=== PATIENT | male | born 1965 | race Caucasian/White ===

== ENCOUNTER 2016-11-22 05:23 | Emergency (ER) | payer MEDICAID ==
[~2016-11-22] VITALS: Ht 167.6 cm; Wt 97.5 kg
[~2016-11-22 05:23] MED LIST: ALPR2TAB2 PO
[2016-11-22] MEDS ORDERED: ESCITALOPRAM OXALATE (10 MG) 10 MG TABLET ONE (06:17)
[2016-11-22] MEDS ORDERED: GABAPENTIN 100 MG CAPSULE ONE (06:17)
[2016-11-22] MEDS: GABAPENTIN 100 MG CAPSULE PO ONE (06:22)
[2016-11-22] MEDS: ESCITALOPRAM OXALATE (10 MG) 10 MG TABLET PO ONE (06:22)
[2016-11-22 06:50] LABS: BASOPHILS % (AUTO) 0.1 % (0.0-2.0); DIFF TOTAL % 100 %; EOSINOPHILS % (AUTO) 0.4 % (0.0-6.0); HEMATOCRIT 41 % (39-51); HEMOGLOBIN 13.3 g/dL (13.5-17.5); LYMPHOCYTES # (AUTO) 1.8 /CMM (0.8-4.8); LYMPHOCYTES % (AUTO) 17.9 % (20.0-44.0); MEAN CORPUSCULAR HEMOGLOBIN 27 PG (26.0-33.0); MEAN CORPUSCULAR HGB CONC 33 g/dl (31.0-36.0); MEAN CORPUSCULAR VOLUME 83 fL (80-96); MONOCYTES # (AUTO) 0.1 /CMM (0.1-1.30); MONOCYTES % (AUTO) 1.3 % (2.0-12.0); NEUTROPHILS # (AUTO) 8.3 /CMM (1.8-8.9); NEUTROPHILS % (AUTO) 80.3 % (43.0-81.0); PLATELET COUNT (AUTO) 376 /CMM (150-450); RED BLOOD CELL COUNT(AUTO) 4.89 MIL/uL (4.5-6.0); WHITE BLOOD COUNT (AUTO) 10.3 K/uL (4.3-11.0)
[2016-11-22 07:10] LABS: ANION GAP 18 (5-14); CALCIUM, SERUM 9.2 mg/dL (8.5-10.1); CARBON DIOXIDE 26 mmol/L (21-32); CHLORIDE 104 mmol/L (98-107); CREATININE 1.4 mg/dL (0.6-1.3); GFR 54 mL/min (>60); GLUCOSE 90 mg/dL (74-106); POTASSIUM 4.7 mmol/L (3.5-5.1); SODIUM SERUM 143 mmol/L (136-145); UREA NITROGEN, BLOOD 16 mg/dL (7-18)
[2016-11-22 07:10] LABS: CANNABINOID, URINE NEGATIVE (NEGATIVE); PHENCYCLIDINE SCREEN,URINE NEGATIVE (NEGATIVE)
[2016-11-22 07:15] LABS: ALANINE AMINOTRANSFERASE 34 U/L (12-78); ALBUMIN 4.1 g/dL (3.4-5.0); ASPARTATE AMINOTRANSFERASE 17 U/L (15-37); BILIRUBIN,DIRECT 0.1 mg/dL (0.0-0.2); BILIRUBIN,TOTAL 0.5 mg/dL (0.2-1.0); INDIRECT BILIRUBIN 0.4 mg/dL (0.0-1.1); TOTAL PROTEIN, SERUM 7.7 g/dL (6.4-8.2)
[2016-11-22 07:17] LABS: KETONES,URINE 1+ (NEGATIVE); LEUKOCYTE ESTERASE ,URINE NEGATIVE (NEGATIVE)
[2016-11-22 07:18] LABS: ACETAMINOPHEN 0 ug/ml (10-30); SALICYLATE 1.9 mg/dL (2.8-20.0)
[2016-11-22 07:36] LABS: ADD UA MICROSCOPIC YES
[2016-11-22 07:43] LABS: ADD URINE CULTURE YES; RBC,URINE NONE SEEN /HPF (0-2); WBC,URINE 0-2 /HPF (0-3)
[2016-11-22] MEDS ORDERED: diphenhydrAMINE HCL 50 MG CAPSULE ONE (09:21)
[2016-11-22] MEDS: diphenhydrAMINE HCL 50 MG CAPSULE PO ONE (09:27)
[2016-11-22 11:11] VITALS: BP 149/80
== END 2016-11-22 11:13 | disposition home or self-care (01) ==
LOC: ER 05:23
DX: F13.239 Sedative, hypnotic or anxiolytic dependence with withdrawal, unspecified (principal); F15.10 Other stimulant abuse, uncomplicated; I10 Essential (primary) hypertension
CPT/HCPCS: 36415; 80048; 80076; 80305; 81001; 85025; 87086; 99284; A4606; G0480; G0481; G0482; Q0163; Z7610; 81000-TC; G6038-TC; G6039-TC; G6040-TC

== ENCOUNTER 2017-02-07 17:41 | Emergency (ER) | payer MEDICAID ==
[~2017-02-07] VITALS: Ht 167.6 cm; Wt 95.3 kg
--- NOTE | 2017-02-07 17:43 | NUR ---
PT BIBRA TO ER BED 15. PER REPORT, CALLED 911 AND C/O DEPRESSION W/ SI. NO SPECIFIC PLAN. AT THE PD STATION. PT STARTED C/O CHEST PAIN. GOWNED AND PLACED ON MONITIOR. PLACED ON MSI PRECAUTION. AWAITING MD FLORES.
--- NOTE | 2017-02-07 17:58 | NUR ---
YUNG RN OTOLARYNGOLOGY AT BEDSIDE FOR EVAL.
[2017-02-07] MEDS ORDERED: ASPIRIN 81 MG TAB.CHEW PO ONE (18:00)
[2017-02-07] MEDS ORDERED: LORAZEPAM 1 MG TABLET PO ONE ×2 (18:00→21:00)
[2017-02-07] MEDS ORDERED: ASPIRIN 81 MG TAB.CHEW ONE (18:08)
[2017-02-07] MEDS ORDERED: LORAZEPAM 1 MG TABLET ONE ×2 (18:08→20:34)
--- NOTE | 2017-02-07 18:08 | NUR ---
IV LINE STARTED BLOOD DRAWN AND SENT TO LAB.
[2017-02-07 18:13] LABS: BASOPHILS # (AUTO) 0.1 /CMM (0.0-0.2); BASOPHILS % (AUTO) 1.3 % (0.0-2.0); EOSINOPHILS # (AUTO) 0.1 /CMM (0.0-0.7); HEMATOCRIT 47 % (39-51); HEMOGLOBIN 15.1 g/dL (13.5-17.5); LYMPHOCYTES # (AUTO) 1.7 /CMM (0.8-4.8); MEAN CORPUSCULAR HEMOGLOBIN 27 PG (26.0-33.0); MEAN CORPUSCULAR HGB CONC 33 g/dl (31.0-36.0); MEAN CORPUSCULAR VOLUME 85 fL (80-96); MONOCYTES # (AUTO) 0.6 /CMM (0.1-1.30); NEUTROPHILS % (AUTO) 70.7 % (43.0-81.0); PLATELET COUNT (AUTO) 362 /CMM (150-450); RDW COEFFICIENT OF VARIATION 15.3 (11.5-15.0); RED BLOOD CELL COUNT(AUTO) 5.52 MIL/uL (4.5-6.0); WHITE BLOOD COUNT (AUTO) 8.5 K/uL (4.3-11.0)
[2017-02-07 18:23] LABS: CARBON DIOXIDE 27 mmol/L (21-32); CHLORIDE 102 mmol/L (98-107); CREATININE 1.3 mg/dL (0.6-1.3); GFR 58 mL/min (>60); GLUCOSE 99 mg/dL (74-106); POTASSIUM 4.5 mmol/L (3.5-5.1); SODIUM SERUM 137 mmol/L (136-145); UREA NITROGEN, BLOOD 13 mg/dL (7-18)
[2017-02-07 18:29] LABS: INR 1.08 (0.87-1.13); PROTHROMBIN TIME 11.6 SECS (9.5-12.7)
[2017-02-07 18:31] LABS: TROPONIN I < 0.017 ng/mL (0.00-0.056)
--- NOTE | 2017-02-07 18:33 | NUR ---
CALLED [facility] FOR PSYCH EVAL, ETA 1 HOUR
[2017-02-07 19:15] LABS: ACETAMINOPHEN 0 ug/ml (10-30); ALCOHOL, BLOOD < 3 mg/dL (0-0); SALICYLATE 2.6 mg/dL (2.8-20.0)
[2017-02-07] MEDS ORDERED: diphenhydrAMINE HCL 50 MG/ML VIAL ONE (19:17)
[2017-02-07] MEDS ORDERED: diphenhydrAMINE HCL 50 MG/ML VIAL IV ONE (19:30)
[2017-02-07 19:57] LABS: CANNABINOID, URINE NEGATIVE (NEGATIVE); PHENCYCLIDINE SCREEN,URINE NEGATIVE (NEGATIVE)
--- NOTE | 2017-02-07 20:59 | NUR ---
CALLED [facility] FOR TRANSPORT TO [facility], ETA 90 MIN Addendum: 02/07/17 at 2059 by YAEL *ETA 2 AND A HALF HOURS
--- NOTE | 2017-02-07 21:26 | NUR ---
REPORT CALLED. SPOKE TO ARASH. PT AWAITING TRANSFER.
--- NOTE | 2017-02-07 22:43 | NUR ---
TRANSFERED TO [facility]. STABLE CONDITION. IVHL D/C'D.
[2017-02-07 22:46] VITALS: BP 152/87
== END 2017-02-07 22:47 | disposition home or self-care (01) ==
LOC: ER 17:45
DX: R07.89 Other chest pain (principal); F15.10 Other stimulant abuse, uncomplicated; F32.9 Major depressive disorder, single episode, unspecified; F41.9 Anxiety disorder, unspecified; I10 Essential (primary) hypertension; Z79.82 Long term (current) use of aspirin
CPT/HCPCS: 36415; 71010; 80048; 80305; 80329; 84484 ×2; 85025; 85730; 93005 ×2; 96374; 99285; G0480 ×2; J1200; G6039-TC

== ENCOUNTER 2017-05-10 05:45 | Emergency (ER) | payer MEDICAID ==
[~2017-05-10] VITALS: Ht 167.6 cm; Wt 95.3 kg
--- NOTE | 2017-05-10 06:30 | NUR ---
PT A/OX4 BREATHING EFFORTLESSLY ON ROOM AIR, PT STATES HE USED METH AND COCAINE 2 DAYS AGO AND NOW JUST FEELS LIKE HE IS A DANGER TO HIMSELF, PT DOES NOT HAVE A PLAN AND PT DENIES HI, URINE AND LABS COLLECTED, PT IN MD LORENA MADE AWARE WILL CONTINUE TO MONITOR.
[2017-05-10] MEDS ORDERED: LORAZEPAM 1 MG TABLET ONE ×2 (06:43→08:13)
[2017-05-10] MEDS ORDERED: LISINOPRIL (5MG) 5 MG TABLET ONE (06:47)
--- NOTE | 2017-05-10 06:56 | NUR ---
LISINIPRIL NOT AVAILABLE IN ER [facility], MEDICINE RECIVED FROM HOUSE SUP
[2017-05-10 06:58] LABS: CALCIUM, SERUM 9.4 mg/dL (8.5-10.1); CARBON DIOXIDE 25 mmol/L (21-32); CHLORIDE 102 mmol/L (98-107); CREATININE 1.2 mg/dL (0.6-1.3); GLUCOSE 99 mg/dL (74-106); POTASSIUM 4.2 mmol/L (3.5-5.1); SODIUM SERUM 138 mmol/L (136-145); UREA NITROGEN, BLOOD 10 mg/dL (7-18)
[2017-05-10 06:59] LABS: ALCOHOL, BLOOD < 3 mg/dL (0-0)
[2017-05-10] MEDS ORDERED: LORAZEPAM 1 MG TABLET PO ONE ×2 (07:00→08:30)
[2017-05-10 07:13] LABS: BASOPHILS % (AUTO) 0.4 % (0.0-2.0); EOSINOPHILS # (AUTO) 0.3 /CMM (0.0-0.7); EOSINOPHILS % (AUTO) 3.2 % (0.0-6.0); HEMATOCRIT 42 % (39-51); HEMOGLOBIN 14.2 g/dL (13.5-17.5); LYMPHOCYTES # (AUTO) 2.1 /CMM (0.8-4.8); LYMPHOCYTES % (AUTO) 22.1 % (20.0-44.0); MEAN CORPUSCULAR HEMOGLOBIN 28 PG (26.0-33.0); MEAN CORPUSCULAR HGB CONC 33 g/dl (31.0-36.0); MEAN CORPUSCULAR VOLUME 84 fL (80-96); MONOCYTES # (AUTO) 0.7 /CMM (0.1-1.30); MONOCYTES % (AUTO) 7.3 % (2.0-12.0); NEUTROPHILS # (AUTO) 6.3 /CMM (1.8-8.9); PLATELET COUNT (AUTO) 375 /CMM (150-450); RDW COEFFICIENT OF VARIATION 16.3 (11.5-15.0); RED BLOOD CELL COUNT(AUTO) 5.06 MIL/uL (4.5-6.0); WHITE BLOOD COUNT (AUTO) 9.3 K/uL (4.3-11.0)
--- NOTE | 2017-05-10 07:40 | NUR ---
PT AAO, NOTED CALM AND COOPERATIVE. SITTING IN BED. VSS. WILL MONITOR.
--- NOTE | 2017-05-10 08:50 | NUR ---
URMILA HOWELL LCSW AT BS FOR EVAL.
[2017-05-10] MEDS ORDERED: LISINOPRIL (20MG) 20 MG TABLET PO SCH (09:00)
--- NOTE | 2017-05-10 09:31 | NUR ---
CALL FROM KIAH, INTAKE AT [facility], ACCEPTED PT FOR ADMISSION
--- NOTE | 2017-05-10 09:38 | NUR ---
CALLED [facility] ETA 30-45MIN PER ANGELA
--- NOTE | 2017-05-10 10:00 | NUR ---
REPORT GIVEN TO [facility] FOR TRANSPORT TO [facility].
[2017-05-10 11:39] VITALS: BP 164/109
== END 2017-05-10 11:40 ==
LOC: ER 05:48
DX: F15.10 Other stimulant abuse, uncomplicated (principal); F31.9 Bipolar disorder, unspecified; F14.10 Cocaine abuse, uncomplicated; F41.9 Anxiety disorder, unspecified; I10 Essential (primary) hypertension; Z88.1 Allergy status to other antibiotic agents
CPT/HCPCS: 36415; 80048; 80305; 85025; 99285; A4606; G0480; Z7610

== ENCOUNTER 2017-05-24 05:47 | Emergency (ER) | payer MEDICAID ==
[~2017-05-24] VITALS: Ht 172.7 cm; Wt 90.7 kg
--- NOTE | 2017-05-24 06:03 | NUR ---
pt ambulatory w/ steady gait, c/o feeling very anxious, depressed, sob s/p smoking meth and alcohol use x last night, hx meth and alcohol abuse. pt AOx4, afebrile w/ resp even & unlabored, O2 sat 100% on RA, tachycardic, hypertensive, on continuous pulse-ox w/ monitoring. pt states he's been under a lot of stress, verbalizing he wants to kill himself, denies having any plan or any HI, cooperative at this time. Pending further brenden enriquez MD.
--- NOTE | 2017-05-24 06:17 | NUR ---
Dr. Batrlett at bedside for further eval.
[2017-05-24] MEDS ORDERED: LORAZEPAM INJ 2 MG/ML VIAL ONE (06:28)
[2017-05-24] MEDS ORDERED: IV NS 0.9% 1,000 ML BAG IV ONE (06:30)
[2017-05-24] MEDS ORDERED: LORAZEPAM INJ 2 MG/ML VIAL IM ONE (06:30)
--- NOTE | 2017-05-24 06:31 | NUR ---
CXR at bedside.
--- NOTE | 2017-05-24 06:35 | NUR ---
IVHL started, labs drawn & sent. medicated as ordered for pt report feeling anxious, tachycardic. On continuous monitoring. Urinal provided.
[2017-05-24 06:42] LABS: BASOPHILS % (AUTO) 0.2 % (0.0-2.0); EOSINOPHILS # (AUTO) 0.1 /CMM (0.0-0.7); EOSINOPHILS % (AUTO) 0.8 % (0.0-6.0); HEMATOCRIT 42 % (39-51); LYMPHOCYTES # (AUTO) 1.6 /CMM (0.8-4.8); LYMPHOCYTES % (AUTO) 11.7 % (20.0-44.0); MEAN CORPUSCULAR HEMOGLOBIN 28 PG (26.0-33.0); MEAN CORPUSCULAR HGB CONC 33 g/dl (31.0-36.0); MEAN CORPUSCULAR VOLUME 83 fL (80-96); MONOCYTES # (AUTO) 0.8 /CMM (0.1-1.30); MONOCYTES % (AUTO) 5.9 % (2.0-12.0); NEUTROPHILS # (AUTO) 11.2 /CMM (1.8-8.9); NEUTROPHILS % (AUTO) 81.4 % (43.0-81.0); PLATELET COUNT (AUTO) 383 /CMM (150-450); RDW COEFFICIENT OF VARIATION 15.7 (11.5-15.0); RED BLOOD CELL COUNT(AUTO) 5.03 MIL/uL (4.5-6.0); WHITE BLOOD COUNT (AUTO) 13.8 K/uL (4.3-11.0)
--- NOTE | 2017-05-24 06:51 | NUR ---
pt report unable to urinate at this time. Urinal provided. Instruct pt to provide urine sample as soon as able.
[2017-05-24 06:52] LABS: CALCIUM, SERUM 8.9 mg/dL (8.5-10.1); CARBON DIOXIDE 24 mmol/L (21-32); CHLORIDE 102 mmol/L (98-107); CREATININE 1.3 mg/dL (0.6-1.3); GLUCOSE 96 mg/dL (74-106); POTASSIUM 4.1 mmol/L (3.5-5.1); SODIUM SERUM 138 mmol/L (136-145); UREA NITROGEN, BLOOD 12 mg/dL (7-18)
[2017-05-24 07:00] LABS: TROPONIN I < 0.017 ng/mL (0.00-0.056)
--- NOTE | 2017-05-24 07:09 | NUR ---
Urine obtained & sent to lab.
--- NOTE | 2017-05-24 07:10 | NUR ---
Dr. Bartlett notified of pt elevated bp. pt continues to be anxious, hypertensive, on continuous monitoring w/ IV flds continue to be infusing. Report given to SIMONE Saini for ESTELLE.
[2017-05-24 07:12] LABS: ALANINE AMINOTRANSFERASE 33 U/L (12-78); ALBUMIN 4.6 g/dL (3.4-5.0); ALCOHOL, BLOOD < 3 mg/dL (0-0); ALKALINE PHOSPHATASE 92 U/L (46-116); ASPARTATE AMINOTRANSFERASE 22 U/L (15-37); BILIRUBIN,DIRECT 0.1 mg/dL (0.0-0.2); BILIRUBIN,TOTAL 0.5 mg/dL (0.2-1.0); TOTAL PROTEIN, SERUM 7.9 g/dL (6.4-8.2)
[2017-05-24] MEDS ORDERED: hydrALAZINE HCL IV 20 MG VIAL ONE (07:13)
[2017-05-24 07:19] LABS: ACETAMINOPHEN 0 ug/ml (10-30); SALICYLATE 1.4 mg/dL (2.8-20.0)
--- NOTE | 2017-05-24 07:20 | NUR ---
PT ON BED,AWAKE. STABLE
[2017-05-24 07:22] LABS: APPEARANCE,URINE CLEAR (CLEAR); BILIRUBIN,URINE NEGATIVE (NEGATIVE); BLOOD, URINE NEGATIVE Ery/uL (NEGATIVE); COLOR,URINE YELLOW (YELLOW); KETONES,URINE NEGATIVE (NEGATIVE); LEUKOCYTE ESTERASE ,URINE NEGATIVE (NEGATIVE); NITRITE, URINE NEGATIVE (NEGATIVE); PH,URINE 5.5 (5.0-8.0); PROTEIN,URINE NEGATIVE (NEGATIVE); UGLUCOSE NEGATIVE (NEGATIVE); UROBILINOGEN,URINE 0.2 EU/dL (0.2)
[2017-05-24] MEDS ORDERED: hydrALAZINE HCL IV 20 MG VIAL IM ONE (07:30)
--- NOTE | 2017-05-24 08:19 | NUR ---
CALLED LATOYA NICHOLS FOR PSYCHE EVAL. WILL BE HERE IN AN HOUR
[2017-05-24] MEDS ORDERED: ACETAMINOPHEN ES 500 MG TABLET ONE (08:52)
[2017-05-24] MEDS ORDERED: ACETAMINOPHEN ES 500 MG TABLET PO ONE (09:00)
--- NOTE | 2017-05-24 09:37 | NUR ---
SPOKE WITH PT AND NOTIFIED HIM OF PLAN OF CARE-- AWAITING FOR RN LATOYA
--- NOTE | 2017-05-24 09:42 | NUR ---
LAOTYA RN AT BEDSIDE
[2017-05-24] MEDS ORDERED: LABETALOL HCL IV 100MG VIAL IV ONE (11:00)
--- NOTE | 2017-05-24 12:17 | NUR ---
CALLED [facility] REQUESTED BY PT, SPOKE WITH FRANKLIN SCHROEDER THAT HE IS WORKING ON [place]
--- NOTE | 2017-05-24 13:32 | NUR ---
CALLED [facility] FOR TRANSPORT TO [facility], ETA 30 MIN
[2017-05-24] MEDS ORDERED: ALPRAZOLAM 0.5 MG TABLET ONE (13:46)
[2017-05-24] MEDS ORDERED: ALPRAZOLAM 0.5 MG TABLET PO ONE (14:00)
[2017-05-24 14:09] VITALS: BP 154/90
--- NOTE | 2017-05-24 14:10 | NUR ---
repoprt given to john brewer from [facility]
== END 2017-05-24 14:13 ==
LOC: ER 05:47
DX: F15.10 Other stimulant abuse, uncomplicated (principal); F10.20 Alcohol dependence, uncomplicated; G89.29 Other chronic pain; R07.9 Chest pain, unspecified; F32.9 Major depressive disorder, single episode, unspecified; I10 Essential (primary) hypertension; Z88.1 Allergy status to other antibiotic agents; F41.9 Anxiety disorder, unspecified
CPT/HCPCS: 36415; 71010; 80048; 80076; 80305; 80329; 81001; 84484; 85025; 93005; 96361; 96374 ×2; 96375; 99285; A4606; G0480 ×2; J0360; J2060; J7030 ×2; Z7610; 81000-TC

== ENCOUNTER 2017-08-28 03:26 | Emergency (ER) | payer MEDICAID ==
[~2017-08-28] VITALS: Ht 167.6 cm; Wt 95.3 kg
--- NOTE | 2017-08-28 03:40 | NUR ---
TO BED 12 A 52 YO MALE BB SELF REPORTING TO BE FEELING DEPRESSED AND NEEDS MEDICAL CLEARANCE FOR [facility] ADMISSION. PATIENT IS AAOX3, NAD NOTED. VSS. BREATHING EVEN AND UNLABORED. AMBULATORY WITH STEADY GAIT. DENIES SI/HI AT THIS TIME. SAFETY MEASURES IN PLACE.
[2017-08-28 04:04] LABS: BASOPHILS # (AUTO) 0.1 /CMM (0.0-0.2); BASOPHILS % (AUTO) 1.4 % (0.0-2.0); EOSINOPHILS # (AUTO) 0.3 /CMM (0.0-0.7); EOSINOPHILS % (AUTO) 2.8 % (0.0-6.0); HEMATOCRIT 40 % (39-51); HEMOGLOBIN 12.9 g/dL (13.5-17.5); LYMPHOCYTES # (AUTO) 2.1 /CMM (0.8-4.8); LYMPHOCYTES % (AUTO) 22.6 % (20.0-44.0); MEAN CORPUSCULAR HEMOGLOBIN 27 PG (26.0-33.0); MEAN CORPUSCULAR HGB CONC 33 g/dl (31.0-36.0); MEAN CORPUSCULAR VOLUME 82 fL (80-96); MONOCYTES # (AUTO) 0.7 /CMM (0.1-1.30); MONOCYTES % (AUTO) 8.2 % (2.0-12.0); NEUTROPHILS # (AUTO) 5.9 /CMM (1.8-8.9); PLATELET COUNT (AUTO) 391 /CMM (150-450); RDW COEFFICIENT OF VARIATION 16.2 (11.5-15.0); RED BLOOD CELL COUNT(AUTO) 4.84 MIL/uL (4.5-6.0); WHITE BLOOD COUNT (AUTO) 9.1 K/uL (4.3-11.0)
[2017-08-28 04:15] LABS: CALCIUM, SERUM 9.2 mg/dL (8.5-10.1); CARBON DIOXIDE 21 mmol/L (21-32); CHLORIDE 104 mmol/L (98-107); CREATININE 1.3 mg/dL (0.6-1.3); GLUCOSE 89 mg/dL (74-106); POTASSIUM 3.7 mmol/L (3.5-5.1); SODIUM SERUM 138 mmol/L (136-145); UREA NITROGEN, BLOOD 13 mg/dL (7-18)
[2017-08-28 04:20] LABS: ALANINE AMINOTRANSFERASE 43 U/L (12-78); ALBUMIN 3.9 g/dL (3.4-5.0); ALCOHOL, BLOOD < 3 mg/dL (0-0); ALKALINE PHOSPHATASE 92 U/L (46-116); ASPARTATE AMINOTRANSFERASE 63 U/L (15-37); BILIRUBIN,DIRECT 0.2 mg/dL (0.0-0.2); BILIRUBIN,TOTAL 0.7 mg/dL (0.2-1.0); TOTAL PROTEIN, SERUM 7.4 g/dL (6.4-8.2)
[2017-08-28 04:25] LABS: ACETAMINOPHEN 0 ug/ml (10-30)
--- NOTE | 2017-08-28 06:08 | NUR ---
Patient is still unable to provide urine at this time. Nad noted.
--- NOTE | 2017-08-28 06:23 | NUR ---
PT DISCHARGED, PT WAS GIVEN ACI AND LABS, PT UNABLE TO GIVE URINE SAMPLE AND MD TUCKER WAS OK DISCHARGING PATIENT WITHOUT OBTAINING URINE SAMPLE FIRST, PT WALKED OUT OF THE ER WITH A STEADY GAIT.
[2017-08-28 06:26] VITALS: BP 135/84
== END 2017-08-28 06:27 | disposition home or self-care (01) ==
LOC: ER 03:27
DX: F32.9 Major depressive disorder, single episode, unspecified (principal); F41.9 Anxiety disorder, unspecified; I10 Essential (primary) hypertension; F19.10 Other psychoactive substance abuse, uncomplicated; F10.10 Alcohol abuse, uncomplicated; Z90.89 Acquired absence of other organs
CPT/HCPCS: 36415; 80048; 80076; 80329; 85025; 99284; A4606; G0480 ×2; Z7610

== ENCOUNTER 2017-10-10 08:49 | Emergency (ER) | payer MEDICAID ==
[~2017-10-10] VITALS: Ht 167.6 cm; Wt 95.7 kg
--- NOTE | 2017-10-10 08:49 | NUR ---
BBRA FROM [facility] FOR CHEST PAIN SINCE 0500 AM THIS AM. ADMITS USING METH YESTERDAY. NAD NOTED. PT AAO X4, AMB WITH STEADY GAIT. RR EVEN AND UNLABORED. NITRO X2 AND 162 ASA GIVEN IN FIELD. PATIENT VERBALIZES RELIEF. MD AT BEDSIDE FOR EVAL.
[2017-10-10] MEDS ORDERED: KETOROLAC TROMETHAMINE INJ 30 MG/ML VIAL ONE (09:51)
[2017-10-10] MEDS ORDERED: KETOROLAC TROMETHAMINE INJ 30 MG/ML VIAL IV ONE (10:00)
[2017-10-10 10:01] LABS: BASOPHILS # (AUTO) 0.2 /CMM (0.0-0.2); EOSINOPHILS % (AUTO) 0.2 % (0.0-6.0); HEMATOCRIT 41 % (39-51); LYMPHOCYTES # (AUTO) 1.5 /CMM (0.8-4.8); LYMPHOCYTES % (AUTO) 16.4 % (20.0-44.0); MEAN CORPUSCULAR HEMOGLOBIN 26 PG (26.0-33.0); MEAN CORPUSCULAR HGB CONC 32 g/dl (31.0-36.0); MEAN CORPUSCULAR VOLUME 82 fL (80-96); MONOCYTES # (AUTO) 0.7 /CMM (0.1-1.30); MONOCYTES % (AUTO) 7.7 % (2.0-12.0); NEUTROPHILS # (AUTO) 6.8 /CMM (1.8-8.9); NEUTROPHILS % (AUTO) 73.7 % (43.0-81.0); PLATELET COUNT (AUTO) 391 /CMM (150-450); RDW COEFFICIENT OF VARIATION 17.4 (11.5-15.0); RED BLOOD CELL COUNT(AUTO) 4.94 MIL/uL (4.5-6.0); WHITE BLOOD COUNT (AUTO) 9.2 K/uL (4.3-11.0)
[2017-10-10 10:11] LABS: CALCIUM, SERUM 9.2 mg/dL (8.5-10.1); CARBON DIOXIDE 25 mmol/L (21-32); CHLORIDE 102 mmol/L (98-107); CREATININE 1.4 mg/dL (0.6-1.3); GLUCOSE 96 mg/dL (74-106); POTASSIUM 5.1 mmol/L (3.5-5.1); SODIUM SERUM 138 mmol/L (136-145); UREA NITROGEN, BLOOD 16 mg/dL (7-18)
[2017-10-10 10:14] LABS: INR 0.98 (0.87-1.13); PROTHROMBIN TIME 10.2 SECS (9.5-12.7)
[2017-10-10 10:21] LABS: TROPONIN I < 0.017 ng/mL (0.00-0.056)
[2017-10-10] MEDS ORDERED: OLANZAPINE 5 MG TABLET PO ONE (10:30)
[2017-10-10] MEDS ORDERED: OLANZAPINE 5 MG TABLET ONE (10:33)
[2017-10-10 10:56] VITALS: BP 125/68
--- NOTE | 2017-10-10 12:12 | NUR ---
Social service consult requested by DONNA Contreras for drug use and treatment placement. Pt. is a 52 year old male who came to [facility] for chest pain. CODI met with pt. in ED. Pt. is alert and oriented x 4. Pt. has a flat affect and is soft spoken. Pt. states he is homeless for over a year. Pt. has gone to a lot of hospitals. Pt. does not speak with his family. Pt. receives [employer] Relief and food stamps. Pt. is a drug user and uses crystal meth and cocaine. Pt. last used methamphetamines yesterday. Pt. is interested in treatment. Pt. has been to [facility] and [facility] in the past. Pt. denies suicidal/homicidal ideations and visual/ auditory hallucinations at this time. Pt. has had a history of psychiatric hospitalizations. CODI contacted [facility] and spoke with Yury regarding outpatient treatment. Yury informed CODI that since pt. is homeless they will not be able to service him since their program is intensive. CODI contacted [facility] and spoke to Nano Goncalves who informed SW to email her the intake referral packet. CODI sent referral to Nano at [email or web address]. CODI contacted Nano ext. [phone] who informed SW to send patient to [address] [place] [address] for an assessment into their detox program. CODI met with pt. and informed him regarding Nano wanting pt. to go to [facility] for an assessment. Pt. agreed. CODI consulted with nursing supervisor labor gang Libby for a taxi voucher to send pt. to [facility] treatment located at [address] [place] [address]. CODI arranged for taxi transportation to [facility]. CODI met with pt. and informed him that a taxi will transport him to [facility] and informed pt. to ask for Nano Goncalves once he gets there. Pt. was appreciative. CODI also gave pt. list of homeless shelters , winter shelters, food resources and list of medical and mental health clinics in [facility]. No other social service needs required at this time. CODI is available if needed.
== END 2017-10-10 10:57 | disposition home or self-care (01) ==
LOC: ER 08:52
DX: R07.89 Other chest pain (principal); I10 Essential (primary) hypertension; F32.9 Major depressive disorder, single episode, unspecified; F41.9 Anxiety disorder, unspecified; F15.10 Other stimulant abuse, uncomplicated; Z88.1 Allergy status to other antibiotic agents
CPT/HCPCS: 36415; 71010; 80048; 84484; 85025; 85730; 93005; 96374; 99285; A4606; J1885; Z7610

== ENCOUNTER 2020-07-04 19:30 | Emergency (ER) | payer MEDICAID, OTHER ==
[~2020-07-04] VITALS: Ht 167.6 cm; Wt 98.0 kg
[2020-07-04 19:30] VITALS: BP 101/57
[2020-07-04] MEDS ORDERED: ONDANSETRON 4 MG TAB.RAPDIS ONE (19:48)
--- NOTE | 2020-07-04 19:55 | NUR ---
PATIENT CAME TO ER BIB RA C/O BEING FOUND AT A BUS STOP "FEELING WEAK" ALSO ADMITS TO TAKING 2 XANAX PILLS AND 5 BEERS". PATIENT IS AAOX2. PATIENT IS SOMNOLENT. PATIENT IS BREATHING EVENLY AND UNLABORED ON ROOM AIR. CONNECTED TO THE MONITOR.
[2020-07-04] MEDS: ONDANSETRON 4 MG TAB.RAPDIS PO ONE (20:04)
--- NOTE | 2020-07-04 20:23 | NUR ---
PATIENT FAILED THE TRIAL OF AMBULATION. WILL TRY AGAIN AT ANOTHER TIME.
--- NOTE | 2020-07-04 20:33 | NUR ---
PATIENT IS GIVEN 2 APPLE JUICE, TOLERATED WELL WITH NO SIGNS OF CHOKING. PATIENT IS BREATHING EVENLY AND UNLABORED ON ROOM AIR. PATIENT STATES, "OOOH YEAH, THAT TASTES GOOD, YEAH, THAT TASTES GOOD" AFTER DRINKING 2 APPLE JUICE.
--- NOTE | 2020-07-04 23:51 | NUR ---
PATIENT IS SLEEPING. EASILY AROUSABLE THROUGH TOUCH AND VERBAL STIMULI. CONNECTED TO THE MONITOR. SIDE RAILS ARE UP FOR SAFETY. BREATHING EVENLY AND UNLABORED ON ROOM AIR. SITTER AT BEDSIDE.
--- NOTE | 2020-07-05 00:49 | NUR ---
IV removed. Catheter intact and site benign. Pressure and 4x4 applied to site. No bleeding noted.
--- NOTE | 2020-07-05 01:03 | NUR ---
Patient discharged to home in stable condition. Written and verbal after care instructions given. Patient verbalizes understanding of instruction.
--- NOTE | 2020-07-05 03:34 | NUR ---
dcPatient discharged to home in stable condition. Written and verbal after care instructions given. Patient verbalizes understanding of instruction.
--- NOTE | 2020-07-05 03:35 | NUR ---
patient is ambulatory with steady gi.t
== END 2020-07-05 03:34 | disposition home or self-care (01) ==
LOC: ER 19:38
DX: R53.1 Weakness (principal); I10 Essential (primary) hypertension; F32.9 Major depressive disorder, single episode, unspecified; F41.9 Anxiety disorder, unspecified; Z98.890 Other specified postprocedural states; Z88.1 Allergy status to other antibiotic agents; Z60.2 Problems related to living alone; Z79.899 Other long term (current) drug therapy
CPT/HCPCS: 99283; Q0162

== ENCOUNTER 2020-08-17 06:09 | Emergency (ER) | payer OTHER ==
[~2020-08-17] VITALS: Ht 167.6 cm; Wt 93.0 kg
--- NOTE | 2020-08-17 06:32 | NUR ---
PT WAS BROUGHT IN TO THE ER BY SELF FOR MEDICAL CLEARANCE TO GET ADMITTED TO THE [facility]. PT REPORTED HE IS NOT ABLE TO TAKE CARE OF HIMSELF. PT AMBULATORY TO BED 15. WAS GOWNED UP AND PLACED ON A MONITOR. VSS. ALL BELONGINGS WERE TAKEN AWAY AND WAS PLACED IN THE LOCKER. PT REMAINED UNDER CLOSE SUPERVISION OF A SITTER W/ SI PRECAUTION. WILL CONT TO MONITOR ,
--- NOTE | 2020-08-17 06:34 | NUR ---
URINE COLLECTED AND SENT TO LAB
--- NOTE | 2020-08-17 06:41 | NUR ---
BANK MANAGER AT BEDSIDE FOR BLOOD DRAW
[2020-08-17 06:53] LABS: APPEARANCE,URINE CLEAR (CLEAR); BILIRUBIN,URINE NEGATIVE (NEGATIVE); BLOOD, URINE NEGATIVE Ery/uL (NEGATIVE); COLOR,URINE YELLOW (YELLOW); KETONES,URINE NEGATIVE (NEGATIVE); LEUKOCYTE ESTERASE ,URINE NEGATIVE (NEGATIVE); NITRITE, URINE NEGATIVE (NEGATIVE); PROTEIN,URINE NEGATIVE (NEGATIVE); UGLUCOSE NEGATIVE (NEGATIVE); UROBILINOGEN,URINE 0.2 EU/dL (0.2)
[2020-08-17 07:02] LABS: BASOPHILS # (AUTO) 0.1 /CMM (0.0-0.2); BASOPHILS % (AUTO) 0.8 % (0.0-2.0); EOSINOPHILS % (AUTO) 2.9 % (0.0-6.0); HEMATOCRIT 50 % (39-51); HEMOGLOBIN 16.1 g/dL (13.5-17.5); LYMPHOCYTES # (AUTO) 1.3 /CMM (0.8-4.8); LYMPHOCYTES % (AUTO) 19.5 % (20.0-44.0); MEAN CORPUSCULAR HGB CONC 32 g/dl (31.0-36.0); MEAN CORPUSCULAR VOLUME 84 fL (80-96); MONOCYTES # (AUTO) 0.6 /CMM (0.1-1.30); MONOCYTES % (AUTO) 9.1 % (2.0-12.0); NEUTROPHILS # (AUTO) 4.7 /CMM (1.8-8.9); NEUTROPHILS % (AUTO) 67.7 % (43.0-81.0); PLATELET COUNT (AUTO) 414 /CMM (150-450); RED BLOOD CELL COUNT(AUTO) 5.88 MIL/uL (4.5-6.0); WHITE BLOOD COUNT (AUTO) 6.9 K/uL (4.3-11.0)
[2020-08-17 07:09] LABS: CALCIUM, SERUM 9.7 mg/dL (8.5-10.1); CARBON DIOXIDE 26 mmol/L (21-32); CHLORIDE 99 mmol/L (98-107); CREATININE 1.6 mg/dL (0.6-1.3); GLUCOSE 116 mg/dL (74-106); POTASSIUM 4.4 mmol/L (3.5-5.1); SODIUM SERUM 134 mmol/L (136-145); UREA NITROGEN, BLOOD 19 mg/dL (7-18)
[2020-08-17 07:20] LABS: ALANINE AMINOTRANSFERASE 49 U/L (12-78); ALBUMIN 4.1 g/dL (3.4-5.0); ALCOHOL, BLOOD < 3 mg/dL (0-0); ALKALINE PHOSPHATASE 94 U/L (46-116); ASPARTATE AMINOTRANSFERASE 27 U/L (15-37); BILIRUBIN,DIRECT 0.2 mg/dL (0.0-0.2); BILIRUBIN,TOTAL 0.5 mg/dL (0.2-1.0); TOTAL PROTEIN, SERUM 7.7 g/dL (6.4-8.2)
[2020-08-17 07:24] LABS: ACETAMINOPHEN 0 ug/ml (10-30)
[2020-08-17] MEDS ORDERED: LORAZEPAM 1 MG TABLET ONE (07:27)
[2020-08-17] MEDS ORDERED: LORAZEPAM 1 MG TABLET PO ONE (07:30)
--- NOTE | 2020-08-17 07:30 | NUR ---
received a call from the lab regarding covid 19 result "negative"
--- NOTE | 2020-08-17 08:42 | NUR ---
FOOD TRAY PROVIDED, PATIENT TOLERATED PO WELL.
--- NOTE | 2020-08-17 09:50 | NUR ---
This SW received a call from Zohra at [facility] Intake . Patient has been accepted, bed pending. Patient has been accepted under the care of Dr. Trinidad and Dr. Chaudhary Nurse to nurse report should be given once assigned to bed at ext [phone]. Per Zohra العلي to call [facility] ED to provide finalized accepting information. Plan: CODI to inform ED Staff of patient acceptance to [facility]. Pending final confirmation from Zohra [facility].
--- NOTE | 2020-08-17 09:53 | NUR ---
PER KIARA (INTAKE DEPT OF [facility])[phone], PATIENT ACCEPTED. AWAITING CALL BACK FOR TRANSFER INFO.
[2020-08-17] MEDS ORDERED: LISI-603 PO (10:02)
[2020-08-17] MEDS ORDERED: OMEP20CA15 PO (10:02)
--- NOTE | 2020-08-17 10:10 | NUR ---
FOOD TRAY PROVIDED, PATIENT TOLERATED PO WELL.
--- NOTE | 2020-08-17 12:37 | NUR ---
PT COMPLAINED OF HEARTBURN. MD MADE AWARE. RECEIVED VERBAL ORDER FOR MAALOX. NOTED AND CARRIED OUT
[2020-08-17] MEDS ORDERED: MAG HYDROX/AL HYDROX/SIMETH 30 ML UDC ONE (12:38)
[2020-08-17] MEDS ORDERED: MAG HYDROX/AL HYDROX/SIMETH 30 ML UDC PO ONE (13:00)
--- NOTE | 2020-08-17 13:22 | NUR ---
FOOD TRAY PROVIDED, PATIENT TOLERATED PO WELL.
--- NOTE | 2020-08-17 14:46 | NUR ---
PATIENT ASLEEP, EASILY AROUSABLE BY VOICE. HOOKED TO MONITOR, WILL CONTINUE TO MONITOR ACCORDINGLY. KEPT SAFE, WARM AND COMFORTABLE. SITTER AT BEDSIDE FOR SAFETY
--- NOTE | 2020-08-17 16:07 | NUR ---
karen called pt is accepted to [facility] by dr. villafana unit 2 call [phone] for report.
--- NOTE | 2020-08-17 16:27 | NUR ---
PATIENT AWAKE, IN BED. HOOKED TO MONITOR, WILL CONTINUE TO MONITOR ACCORDINGLY. KEPT SAFE, WARM AND COMFORTABLE. SITTER AT BEDSIDE FOR SAFETY
--- NOTE | 2020-08-17 16:38 | NUR ---
called [id number] [phone] X 2 arturo confirmation #[id number] will call us with ETA
--- NOTE | 2020-08-17 17:16 | NUR ---
FOOD TRAY PROVIDED, PATIENT TOLERATED PO WELL.
--- NOTE | 2020-08-17 18:47 | NUR ---
REPORT GIVEN TO JANNA NICHOLS OF UNIT 2
[2020-08-17 18:51] VITALS: BP 136/92
--- NOTE | 2020-08-17 18:59 | NUR ---
PATIENT PICKED UP BY [facility] UNIT [facility] IN STABLE CONDITION. CLINICALS PROVIDED TO EMS TO BE GIVEN TO [facility].
== END 2020-08-17 19:02 ==
LOC: ER 06:09
DX: R45.851 Suicidal ideations (principal); F15.10 Other stimulant abuse, uncomplicated; I10 Essential (primary) hypertension; F41.9 Anxiety disorder, unspecified; Z79.899 Other long term (current) drug therapy; Z20.828 Contact with and (suspected) exposure to other viral communicable diseases
CPT/HCPCS: 36415; 80048; 80076; 80299; 80307 ×2; 80320; 81001; 85025; 87426; 99285; C9803; 81000-TC; G0480

== ENCOUNTER 2020-10-01 12:26 | Emergency (ER) | payer OTHER ==
[~2020-10-01] VITALS: Ht 167.6 cm; Wt 93.0 kg
[~2020-10-01 12:26] MED LIST changes: +LISI-603 PO; +OMEP20CA15 PO
[2020-10-01 12:39] VITALS: BP 165/105
--- NOTE | 2020-10-01 13:12 | NUR ---
COVID SWAB OBTAINED AND SENT TO LAB
--- NOTE | 2020-10-01 13:16 | NUR ---
Patient discharged to home in stable condition. Written and verbal after care instructions given. Patient verbalizes understanding of instruction.
--- NOTE | 2020-10-03 14:43 | NUR ---
pt called to get covid result. verified information over the phone and released the result.
== END 2020-10-01 13:17 | disposition home or self-care (01) ==
LOC: ER 12:26
DX: L03.113 Cellulitis of right upper limb (principal); S40.812A Abrasion of left upper arm, initial encounter; S40.811A Abrasion of right upper arm, initial encounter; S60.511A Abrasion of right hand, initial encounter; W55.03XA Scratched by cat, initial encounter; Y92.89 Other specified places as the place of occurrence of the external cause; Y99.8 Other external cause status; Z20.828 Contact with and (suspected) exposure to other viral communicable diseases; F41.9 Anxiety disorder, unspecified; I10 Essential (primary) hypertension; Z79.899 Other long term (current) drug therapy
CPT/HCPCS: 99283; C9803; U0003

== ENCOUNTER 2020-10-01 16:38 | Emergency (ER) | payer OTHER ==
[~2020-10-01] VITALS: Ht 167.6 cm; Wt 93.0 kg
[2020-10-01 16:38] VITALS: BP 144/82
--- NOTE | 2020-10-01 18:10 | NUR ---
medically cleared. pt left w/out ACI.
== END 2020-10-01 18:12 | disposition home or self-care (01) ==
LOC: ER 16:41
DX: B34.8 Other viral infections of unspecified site (principal); I10 Essential (primary) hypertension; Z90.89 Acquired absence of other organs; Z88.1 Allergy status to other antibiotic agents; Z79.899 Other long term (current) drug therapy

== ENCOUNTER 2021-03-14 13:25 | Emergency (ER) | payer OTHER ==
[~2021-03-14] VITALS: Ht 167.6 cm; Wt 95.3 kg
[~2021-03-14 13:25] MED LIST changes: -LISI-603 PO; +LISI20TA30 PO
--- NOTE | 2021-03-14 13:35 | NUR ---
THE PATIENT BISB FOR C/O FEELING SUICIDAL X 2 DAYS. NO PLAN. REQUESTING VOLUNTARY PSYCH ADMIT. DENIES PAIN. RESPIRATION REGULAR AND UNLABORED. WILL CONTINUE TO MONITOR THE PATIENT.
[2021-03-14 13:54] LABS: BASOPHILS # (AUTO) 0.1 /CMM (0.0-0.2); BASOPHILS % (AUTO) 0.9 % (0.0-2.0); EOSINOPHILS % (AUTO) 1.1 % (0.0-6.0); HEMATOCRIT 46 % (39-51); HEMOGLOBIN 15.6 g/dL (13.5-17.5); LYMPHOCYTES # (AUTO) 1.2 /CMM (0.8-4.8); LYMPHOCYTES % (AUTO) 21.3 % (20.0-44.0); MEAN CORPUSCULAR HGB CONC 34 g/dl (31.0-36.0); MEAN CORPUSCULAR VOLUME 90 fL (80-96); MONOCYTES # (AUTO) 0.7 /CMM (0.1-1.30); MONOCYTES % (AUTO) 11.6 % (2.0-12.0); NEUTROPHILS # (AUTO) 3.8 /CMM (1.8-8.9); NEUTROPHILS % (AUTO) 65.1 % (43.0-81.0); PLATELET COUNT (AUTO) 336 /CMM (150-450); RED BLOOD CELL COUNT(AUTO) 5.12 MIL/uL (4.5-6.0); WHITE BLOOD COUNT (AUTO) 5.8 K/uL (4.3-11.0)
[2021-03-14 14:05] LABS: CALCIUM, SERUM 9.6 mg/dL (8.5-10.1); CARBON DIOXIDE 24 mmol/L (21-32); CHLORIDE 103 mmol/L (98-107); CREATININE 1.4 mg/dL (0.6-1.3); GLUCOSE 101 mg/dL (74-106); POTASSIUM 4.3 mmol/L (3.5-5.1); SODIUM SERUM 142 mmol/L (136-145); UREA NITROGEN, BLOOD 15 mg/dL (7-18)
[2021-03-14 14:11] LABS: ALANINE AMINOTRANSFERASE 46 U/L (12-78); ALBUMIN 4.2 g/dL (3.4-5.0); ALCOHOL, BLOOD < 3 mg/dL (0-0); ALKALINE PHOSPHATASE 108 U/L (46-116); ASPARTATE AMINOTRANSFERASE 27 U/L (15-37); BILIRUBIN,DIRECT 0.3 mg/dL (0.0-0.2); TOTAL PROTEIN, SERUM 7.9 g/dL (6.4-8.2)
[2021-03-14 14:14] LABS: ACETAMINOPHEN 0 ug/ml (10-30)
--- NOTE | 2021-03-14 14:22 | NUR ---
COVID SWAB DONE AND SENT TO THE LAB
--- NOTE | 2021-03-14 14:54 | NUR ---
covid negative per lab
[2021-03-14 15:03] LABS: BILIRUBIN,URINE SMALL (NEGATIVE); COLOR,URINE YELLOW (YELLOW); LEUKOCYTE ESTERASE ,URINE NEGATIVE (NEGATIVE); NITRITE, URINE NEGATIVE (NEGATIVE); PROTEIN,URINE TRACE mg/dl (NEGATIVE); UGLUCOSE NEGATIVE (NEGATIVE)
[2021-03-14 15:08] LABS: BACTERIA,URINE RARE /HPF (None Seen); RBC,URINE 0-2 /HPF (0-2); SQUAMOUS EPITHELIAL CELL,UR 0-2 /HPF (None Seen); WBC,URINE 0-2 /HPF (0-3)
[2021-03-14 15:09] LABS: MUCUS,URINE Few /LPF (None Seen)
--- NOTE | 2021-03-14 15:14 | NUR ---
pt hasd plan to cut his wrists given him a lunch tray
[2021-03-14] MEDS ORDERED: ALPRAZOLAM 0.5 MG TABLET PO ONE (17:30)
[2021-03-14] MEDS ORDERED: ALPRAZOLAM 0.5 MG TABLET ONE (17:32)
--- NOTE | 2021-03-14 18:24 | NUR ---
PT ACCEPTED IN [facility], [facility] [place] UNDER DR. YAN CALL [phone] FOR REPORT
--- NOTE | 2021-03-14 18:41 | NUR ---
REPORT GIVEN TO NURSE KIDD
--- NOTE | 2021-03-14 19:40 | NUR ---
CALL [facility] REF # [id number] WILL CALL WITH ETA
--- NOTE | 2021-03-14 23:31 | NUR ---
CALLED [facility] FOR UPDATED ETA. 45 MIN.
--- NOTE | 2021-03-15 00:58 | NUR ---
[facility] AT BEDSIDE FOR TRANSPORT. PT REFUSING TO BE TRANSFERED TO [facility]. DR AVLVERDE NOTIFIED. VERENA ANDERSON FOR EVAL.
--- NOTE | 2021-03-15 05:47 | NUR ---
PT ACCEPTED TO [facility] BY DR LANDAVERDE, UNIT 1. # FOR REPORT [phone]
--- NOTE | 2021-03-15 06:07 | NUR ---
[facility] CALL THE CAR CALLED FOR TRANSPORT. TRIP# [id number]
[2021-03-15 07:15] VITALS: BP 133/84
--- NOTE | 2021-03-15 07:47 | NUR ---
CALLED [id number] ETA IS 0800 WITH [facility]
--- NOTE | 2021-03-15 07:55 | NUR ---
REPORT GIVEN TO JACQUI BERKOWITZ [facility]. PT AWAITING TRANSPORT.
--- NOTE | 2021-03-15 07:57 | NUR ---
PT PROVIDED W/ BREAKFAST TRAY. STABLE VITALS.
--- NOTE | 2021-03-15 08:48 | NUR ---
CALLED [facility] NEW ETA 20 MINS
--- NOTE | 2021-03-15 09:54 | NUR ---
TRANSPORTED TO [facility] IN STABLE CONDITION.
== END 2021-03-15 09:55 ==
LOC: ER 13:25
DX: R45.851 Suicidal ideations (principal); F19.10 Other psychoactive substance abuse, uncomplicated; I10 Essential (primary) hypertension; F41.9 Anxiety disorder, unspecified; Z79.899 Other long term (current) drug therapy; Z20.822 Contact with and (suspected) exposure to COVID-19; Z88.1 Allergy status to other antibiotic agents
CPT/HCPCS: 36415; 80048; 80076; 80299; 80307; 80320; 81001; 85025; 87426; 99285; C9803; G0480

== ENCOUNTER 2021-03-29 16:36 | Emergency (ER) | payer OTHER ==
[~2021-03-29] VITALS: Ht 177.8 cm; Wt 113.4 kg
[2021-03-29] MEDS ORDERED: OLANZAPINE 5 MG TABLET PO ONE (17:00)
[2021-03-29] MEDS ORDERED: ALPRAZOLAM 0.5 MG TABLET PO ONE (17:00)
[2021-03-29] MEDS ORDERED: OLANZAPINE 5 MG TABLET ONE (17:03)
[2021-03-29] MEDS ORDERED: ALPRAZOLAM 0.5 MG TABLET ONE (17:03)
[2021-03-29 17:27] LABS: BASOPHILS # (AUTO) 0.1 /CMM (0.0-0.2); BASOPHILS % (AUTO) 0.6 % (0.0-2.0); EOSINOPHILS % (AUTO) 0.4 % (0.0-6.0); HEMATOCRIT 46 % (39-51); HEMOGLOBIN 15.3 g/dL (13.5-17.5); LYMPHOCYTES # (AUTO) 1.1 /CMM (0.8-4.8); LYMPHOCYTES % (AUTO) 6.6 % (20.0-44.0); MEAN CORPUSCULAR HGB CONC 33 g/dl (31.0-36.0); MEAN CORPUSCULAR VOLUME 90 fL (80-96); MONOCYTES # (AUTO) 0.9 /CMM (0.1-1.30); MONOCYTES % (AUTO) 5.1 % (2.0-12.0); NEUTROPHILS # (AUTO) 15.2 /CMM (1.8-8.9); NEUTROPHILS % (AUTO) 87.3 % (43.0-81.0); PLATELET COUNT (AUTO) 545 /CMM (150-450); RED BLOOD CELL COUNT(AUTO) 5.13 MIL/uL (4.5-6.0); WHITE BLOOD COUNT (AUTO) 17.4 K/uL (4.3-11.0)
[2021-03-29 17:40] LABS: CALCIUM, SERUM 10.4 mg/dL (8.5-10.1); CARBON DIOXIDE 22 mmol/L (21-32); CHLORIDE 102 mmol/L (98-107); CREATININE 2.3 mg/dL (0.6-1.3); GLUCOSE 85 mg/dL (74-106); POTASSIUM 5.7 mmol/L (3.5-5.1); SODIUM SERUM 140 mmol/L (136-145); UREA NITROGEN, BLOOD 30 mg/dL (7-18)
[2021-03-29 17:46] LABS: ALANINE AMINOTRANSFERASE 39 U/L (12-78); ALKALINE PHOSPHATASE 113 U/L (46-116); ASPARTATE AMINOTRANSFERASE 35 U/L (15-37); BILIRUBIN,DIRECT 0.3 mg/dL (0.0-0.2); BILIRUBIN,TOTAL 1.2 mg/dL (0.2-1.0); TOTAL PROTEIN, SERUM 8.6 g/dL (6.4-8.2)
[2021-03-29 17:48] LABS: BILIRUBIN,URINE SMALL (NEGATIVE); COLOR,URINE DARK YELLOW (YELLOW); LEUKOCYTE ESTERASE ,URINE Negative (NEGATIVE); NITRITE, URINE Negative (NEGATIVE); PH,URINE 5.5 (5.0-8.0); PROTEIN,URINE 30 mg/dl (NEGATIVE); UGLUCOSE Negative (NEGATIVE); UROBILINOGEN,URINE 0.2 EU/dL (0.2)
[2021-03-29 17:48] LABS: ACETAMINOPHEN < 0 ug/ml (10-30); ALCOHOL, BLOOD < 3 mg/dL (0-0)
[2021-03-29] MEDS ORDERED: IV NS 0.9% 1,000 ML IV ONE ×2 (18:00→19:00)
[2021-03-29 18:10] LABS: BACTERIA,URINE Few /HPF (None Seen); RBC,URINE 0-2 /HPF (0-2); SQUAMOUS EPITHELIAL CELL,UR Few /HPF (None Seen); WBC,URINE 0-2 /HPF (0-3)
[2021-03-29 18:11] LABS: HYALINE CASTS, URINE Moderate /LPF (None Seen)
[2021-03-29 18:15] LABS: MAGNESIUM 2.4 mg/dL (1.8-2.4); PHOSPHORUS 2.5 mg/dL (2.5-4.9)
--- NOTE | 2021-03-29 18:22 | NUR ---
ADELAIDA FROM THE STREET TO ER BED 12. AAOX4. NOT IN RESP DISTRESS. AMBULATORY. CAME IN FOR BIZAARE BEHAVIOR - PT TALKING TO SELF. ALSO PT IS C/O CHEST PAIN AND GEN BODY PAIN WHICH IS BURNING IN SENSATION STARTED TODAY. PT I NOTED TO HAVE SCRATCHES AND WITH REDNESS ON BILAT FOREARM. PROVIDER WAS AT THE BEDSIDE FOR EVAL. ORDERS RECEIVED, NOTED AND CARRIED OUT.
[2021-03-29 20:57] LABS: CALCIUM, SERUM 8.4 mg/dL (8.5-10.1); CREATININE 1.8 mg/dL (0.6-1.3); POTASSIUM 4.7 mmol/L (3.5-5.1)
[2021-03-29 21:02] LABS: ALBUMIN 3.9 g/dL (3.4-5.0); BILIRUBIN,TOTAL 0.7 mg/dL (0.2-1.0)
--- NOTE | 2021-03-29 21:28 | NUR ---
FACESHEET AND CLINICAL FAXED TO [facility] FOR VOLUNTARY PSYCH ADMISSION.
--- NOTE | 2021-03-29 22:14 | NUR ---
Jimy maurer in [facility] - 03/29/21 at 2305 by EPHRAIM PT PROVIDED WITH FISH
--- NOTE | 2021-03-29 22:14 | NUR ---
PT PROVIDED WITH FOOD
--- NOTE | 2021-03-29 22:53 | NUR ---
REC'D A CALL FROM BONNIE AT [facility] INTAKE: PT GOT ACCEPTED AT [facility] AT [facility] BY DR ESPINOZA. # FOR REPORT: [phone] "PLEASE ARRANGE TRANSPORTATION AFTER 0200"
--- NOTE | 2021-03-29 23:06 | NUR ---
SPOKE WITH MALCOM AT THE [facility] TO GIVE REPORT. NURSE WILL @ CALL WILL CALL BACK, NURSE IS CURRENTLY UNAVAILABLE AT THIS TIME
--- NOTE | 2021-03-29 23:13 | NUR ---
CALLED [facility] FOR TRANSPORTATION AFTER 0200. WILL CALL BACK. REF # [id number]
--- NOTE | 2021-03-29 23:37 | NUR ---
REPORT GIVEN TO SIMONE HALLMAN FOR ESTELLE AT [facility]. ACCORDING TO HER, SHE WILL HAVE TO TALK TO INTAKE IF PT CAN BE ADMITTED D/T PT DID NOT MEET CRITERIA. INTAKE WILL CALL BACK TO INFORM IS PT WILL BE ADMITTED OR NOT.
--- NOTE | 2021-03-30 00:16 | NUR ---
PT VERBALIZE FEELING BETTER REGARDING ANXIETY. PT DENIES SI/HI. PT WANTS TO LEAVE AND REFUSE TRANSFER TO [facility]. AMELIE SUTTON MADE AWARE.
--- NOTE | 2021-03-30 00:16 | NUR ---
PT REFUSE TO WAIT FOR ACI. PT LEFT WITHOUT ACI.
[2021-03-30 00:18] VITALS: BP 132/61
== END 2021-03-30 00:19 | disposition home or self-care (01) ==
LOC: ER 16:41
DX: N17.9 Acute kidney failure, unspecified (principal); F15.151 Other stimulant abuse with stimulant-induced psychotic disorder with hallucinations; E87.5 Hyperkalemia; I10 Essential (primary) hypertension; Z79.899 Other long term (current) drug therapy; R00.0 Tachycardia, unspecified; F19.10 Other psychoactive substance abuse, uncomplicated; F41.9 Anxiety disorder, unspecified; D72.829 Elevated white blood cell count, unspecified; E83.52 Hypercalcemia
CPT/HCPCS: 36415; 71045; 80048; 80053; 80076; 80143; 80307; 80320; 81001; 83735; 84100; 84484; 85025; 87426; 93005; 96360; 96361; 99285; C9803; J7030 ×2; G0480

== ENCOUNTER 2021-04-03 20:44 | Emergency (ER) | payer OTHER ==
[~2021-04-03] VITALS: Ht 167.6 cm; Wt 90.7 kg
[2021-04-03] MEDS ORDERED: IV NS 0.9% 1,000 ML BAG IV ONE (21:30)
--- NOTE | 2021-04-03 21:40 | NUR ---
urine obtained and sent to lab
--- NOTE | 2021-04-03 21:53 | NUR ---
BIBS TO ER BED 15. AAOX4. NOT IN RESP DISTRESS. AMBULATORY. CAME IN FOR C/O DEHYDRATION. PT ALSO COMING WITH C/O "I AM EMOTIONALLY TIRED" AND AUDITORY HALLUCINATION. PT DOES NOT WANT TO SAY WHAT THE VOICES ARE TELLING HIM. HE DENIES THAT PT IS TELLING HIM TO HURT HIMSELF NOR OTHERS. DENIES SUICIDAL NOR HOMICIDAL IDEATION. PT WANT TO BE ADMITTED VOLUNTARILY. PROVIDER WAS AT [facility] BESIDE ANGELO FLORES. ORDERS RECEIVED, NOTED AND CARRIED OUT. IV LINE ESTABLISHED ON L HAND 20G, BLOOD DRAWN AND SENT TO LAB. URINE COLLECTED AND SENT TO LAB
[2021-04-03 22:08] LABS: BILIRUBIN,URINE MODERATE (NEGATIVE); COLOR,URINE YELLOW (YELLOW); LEUKOCYTE ESTERASE ,URINE NEGATIVE (NEGATIVE); NITRITE, URINE NEGATIVE (NEGATIVE); PH,URINE 5.5 (5.0-8.0); PROTEIN,URINE TRACE mg/dl (NEGATIVE); UGLUCOSE NEGATIVE (NEGATIVE); UROBILINOGEN,URINE 0.2 EU/dL (0.2)
[2021-04-03 22:23] LABS: BASOPHILS # (AUTO) 0.1 /CMM (0.0-0.2); BASOPHILS % (AUTO) 0.9 % (0.0-2.0); EOSINOPHILS % (AUTO) 0.8 % (0.0-6.0); HEMATOCRIT 47 % (39-51); HEMOGLOBIN 15.7 g/dL (13.5-17.5); LYMPHOCYTES # (AUTO) 2.2 /CMM (0.8-4.8); LYMPHOCYTES % (AUTO) 22.5 % (20.0-44.0); MEAN CORPUSCULAR HGB CONC 34 g/dl (31.0-36.0); MEAN CORPUSCULAR VOLUME 91 fL (80-96); MONOCYTES # (AUTO) 0.9 /CMM (0.1-1.30); MONOCYTES % (AUTO) 9.2 % (2.0-12.0); NEUTROPHILS # (AUTO) 6.7 /CMM (1.8-8.9); NEUTROPHILS % (AUTO) 66.6 % (43.0-81.0); PLATELET COUNT (AUTO) 488 /CMM (150-450); RED BLOOD CELL COUNT(AUTO) 5.14 MIL/uL (4.5-6.0)
[2021-04-03 22:34] LABS: BACTERIA,URINE RARE /HPF (None Seen); MUCUS,URINE Many /LPF (None Seen); RBC,URINE 0-2 /HPF (0-2); SQUAMOUS EPITHELIAL CELL,UR 0-2 /HPF (None Seen); WBC,URINE 0-2 /HPF (0-3)
[2021-04-03 22:35] LABS: HYALINE CASTS, URINE Few /LPF (None Seen)
[2021-04-03 22:36] LABS: ALANINE AMINOTRANSFERASE 46 U/L (12-78); ALBUMIN 4.7 g/dL (3.4-5.0); ALCOHOL, BLOOD < 3 mg/dL (0-0); ALKALINE PHOSPHATASE 109 U/L (46-116); ASPARTATE AMINOTRANSFERASE 39 U/L (15-37); BILIRUBIN,DIRECT 0.2 mg/dL (0.0-0.2); BILIRUBIN,TOTAL 0.8 mg/dL (0.2-1.0); CALCIUM, SERUM 9.9 mg/dL (8.5-10.1); CARBON DIOXIDE 19 mmol/L (21-32); CHLORIDE 104 mmol/L (98-107); CREATININE 1.9 mg/dL (0.6-1.3); GLUCOSE 113 mg/dL (74-106); POTASSIUM 4.5 mmol/L (3.5-5.1); SODIUM SERUM 139 mmol/L (136-145); TOTAL PROTEIN, SERUM 8.7 g/dL (6.4-8.2); UREA NITROGEN, BLOOD 20 mg/dL (7-18)
[2021-04-03 22:42] LABS: ACETAMINOPHEN < 2 ug/ml (10-30)
--- NOTE | 2021-04-04 00:14 | NUR ---
CLINICAL AND FACESHEET FAXED TO [facility] INTAKE FOR VOLUNTARY PSYCH ADMISSION.
--- NOTE | 2021-04-04 01:51 | NUR ---
TRANSFER INFORMATION: PT ACCEPTED AT [facility] ACCEPTING MD BROWNE PHONE NUMBER FOR REPORT [phone]
--- NOTE | 2021-04-04 01:52 | NUR ---
INITIATED [id number] FOR TRANSPORT.
--- NOTE | 2021-04-04 01:57 | NUR ---
[id number] CALLED FOR TRANSPORT AND CURRENTLY ON HOLD AT THIS TIME.
--- NOTE | 2021-04-04 02:04 | NUR ---
[id number] TRIP #[id number]
--- NOTE | 2021-04-04 05:21 | NUR ---
[facility] ETA [phone]
[2021-04-04 05:36] VITALS: BP 127/63
--- NOTE | 2021-04-04 05:48 | NUR ---
gave repot to john ALVAREZ for cathy
--- NOTE | 2021-04-04 07:07 | NUR ---
PT FEEL BETTER AND NO LONGER WANTS TO GO TO [facility]. PT REMAINS TO DENY SI/HI. ER MADE AWARE. PT AAOX4. PT REFUSE TO WAIT FOR DISCHARGE INSTRUCTION. PT LEFT ER.
== END 2021-04-04 07:08 | disposition home or self-care (01) ==
LOC: ER 20:44
DX: F29 Unspecified psychosis not due to a substance or known physiological condition (principal); E86.0 Dehydration; N17.9 Acute kidney failure, unspecified; F15.10 Other stimulant abuse, uncomplicated; Z20.822 Contact with and (suspected) exposure to COVID-19; I10 Essential (primary) hypertension; F31.9 Bipolar disorder, unspecified; F41.9 Anxiety disorder, unspecified; D69.6 Thrombocytopenia, unspecified; F19.10 Other psychoactive substance abuse, uncomplicated
CPT/HCPCS: 36415; 80048; 80076; 80143; 80307; 80320; 81001; 85025; 87426; 96360; 99285; C9803; J7030; G0480

== ENCOUNTER 2021-04-11 10:14 | Emergency (ER) | payer OTHER ==
[~2021-04-11] VITALS: Ht 167.6 cm; Wt 89.4 kg
--- NOTE | 2021-04-11 10:14 | NUR ---
PT BIB SELF C/O DEPRESSION AND FOR VOLUNTARY PSYCH ADMISSION. PT IS AAOX4, NOT IN RESPIRATORY DISTRESS, V/S STABLE, KEPT RESTED AND COMFORTABLE. WILL CONTINUE TO MONITOR.
--- NOTE | 2021-04-11 11:05 | NUR ---
ER PHLEB AT BEDSIDE FOR BLOOD DRAW.
[2021-04-11 11:15] LABS: BASOPHILS % (AUTO) 0.5 % (0.0-2.0); EOSINOPHILS % (AUTO) 0.8 % (0.0-6.0); HEMATOCRIT 51 % (39-51); LYMPHOCYTES # (AUTO) 1.5 /CMM (0.8-4.8); LYMPHOCYTES % (AUTO) 19.3 % (20.0-44.0); MEAN CORPUSCULAR HGB CONC 33 g/dl (31.0-36.0); MEAN CORPUSCULAR VOLUME 91 fL (80-96); MONOCYTES # (AUTO) 0.8 /CMM (0.1-1.30); MONOCYTES % (AUTO) 9.8 % (2.0-12.0); NEUTROPHILS # (AUTO) 5.5 /CMM (1.8-8.9); NEUTROPHILS % (AUTO) 69.6 % (43.0-81.0); PLATELET COUNT (AUTO) 381 /CMM (150-450); RED BLOOD CELL COUNT(AUTO) 5.62 MIL/uL (4.5-6.0)
[2021-04-11 11:16] LABS: BILIRUBIN,URINE MODERATE (NEGATIVE); COLOR,URINE DARK YELLOW (YELLOW); LEUKOCYTE ESTERASE ,URINE Negative (NEGATIVE); NITRITE, URINE Negative (NEGATIVE); PH,URINE 5.5 (5.0-8.0); PROTEIN,URINE 30 mg/dl (NEGATIVE); UGLUCOSE Negative (NEGATIVE)
[2021-04-11 11:27] LABS: ALANINE AMINOTRANSFERASE 85 U/L (12-78); ALBUMIN 4.4 g/dL (3.4-5.0); ALKALINE PHOSPHATASE 123 U/L (46-116); ASPARTATE AMINOTRANSFERASE 46 U/L (15-37); BILIRUBIN,DIRECT 0.3 mg/dL (0.0-0.2); BILIRUBIN,TOTAL 1.2 mg/dL (0.2-1.0); CALCIUM, SERUM 9.8 mg/dL (8.5-10.1); CARBON DIOXIDE 23 mmol/L (21-32); CHLORIDE 99 mmol/L (98-107); CREATININE 1.6 mg/dL (0.6-1.3); GLUCOSE 105 mg/dL (74-106); SODIUM SERUM 135 mmol/L (136-145); TOTAL PROTEIN, SERUM 8.5 g/dL (6.4-8.2); UREA NITROGEN, BLOOD 20 mg/dL (7-18)
[2021-04-11 11:29] LABS: ACETAMINOPHEN < 3 ug/ml (10-30); ALCOHOL, BLOOD 0 mg/dL (0-0)
[2021-04-11 11:37] LABS: RBC,URINE NONE SEEN /HPF (0-2); WBC,URINE 0-2 /HPF (0-3)
[2021-04-11 11:38] LABS: BACTERIA,URINE None seen /HPF (None Seen)
[2021-04-11 11:39] LABS: SQUAMOUS EPITHELIAL CELL,UR Rare /HPF (None Seen)
--- NOTE | 2021-04-11 11:50 | NUR ---
COVID RESULT: NEGATIVE
--- NOTE | 2021-04-11 12:40 | NUR ---
PER PT HE WANTS TO BE DISCHARGE. AWARE.
[2021-04-11 12:46] VITALS: BP 129/72
--- NOTE | 2021-04-11 12:46 | NUR ---
Patient given written and verbal discharge instructions. Patient verbalizes understanding of instructions. Patient is ambulatory with steady gait. Refuses offer of senior care placement. Patient given list of available shelters in surrounding area.
== END 2021-04-11 12:46 | disposition home or self-care (01) ==
LOC: ER 10:26
DX: R45.851 Suicidal ideations (principal); F32.9 Major depressive disorder, single episode, unspecified; Z20.822 Contact with and (suspected) exposure to COVID-19; I10 Essential (primary) hypertension; F19.10 Other psychoactive substance abuse, uncomplicated
CPT/HCPCS: 36415; 80048; 80076; 80143; 80307; 80320; 81001; 85025; 87426; 99285; C9803; G0480

== ENCOUNTER 2021-05-12 19:00 | Emergency (ER) | payer OTHER ==
[~2021-05-12] VITALS: Ht 170.2 cm; Wt 86.2 kg
[2021-05-12 21:22] LABS: BASOPHILS # (AUTO) 0.1 K/uL (0.0-0.2); BASOPHILS % (AUTO) 1.1 % (0.0-2.0); EOSINOPHILS % (AUTO) 2.4 % (0.0-6.0); HEMATOCRIT 44 % (39-51); HEMOGLOBIN 14.8 g/dL (13.5-17.5); LYMPHOCYTES # (AUTO) 1.8 K/uL (0.8-4.8); LYMPHOCYTES % (AUTO) 30.7 % (20.0-44.0); MEAN CORPUSCULAR HGB CONC 33 g/dl (31.0-36.0); MEAN CORPUSCULAR VOLUME 91 fL (80-96); MONOCYTES # (AUTO) 0.5 K/uL (0.1-1.30); MONOCYTES % (AUTO) 8.3 % (2.0-12.0); NEUTROPHILS # (AUTO) 3.4 K/uL (1.8-8.9); NEUTROPHILS % (AUTO) 57.5 % (43.0-81.0); PLATELET COUNT (AUTO) 303 K/uL (150-450); RED BLOOD CELL COUNT(AUTO) 4.88 MIL/uL (4.5-6.0)
[2021-05-12 21:30] LABS: CALCIUM, SERUM 8.8 mg/dL (8.5-10.1); CARBON DIOXIDE 21 mmol/L (21-32); CHLORIDE 106 mmol/L (98-107); CREATININE 1.2 mg/dL (0.6-1.3); GLUCOSE 90 mg/dL (74-106); SODIUM SERUM 138 mmol/L (136-145); UREA NITROGEN, BLOOD 13 mg/dL (7-18)
[2021-05-12 21:35] LABS: ACETAMINOPHEN < 10 ug/ml (10-30); ALANINE AMINOTRANSFERASE 63 U/L (12-78); ALCOHOL, BLOOD 7 mg/dL (0-0); ALKALINE PHOSPHATASE 99 U/L (46-116); ASPARTATE AMINOTRANSFERASE 45 U/L (15-37); BILIRUBIN,DIRECT 0.1 mg/dL (0.0-0.2); BILIRUBIN,TOTAL 0.2 mg/dL (0.2-1.0); TOTAL PROTEIN, SERUM 7.3 g/dL (6.4-8.2)
[2021-05-12 22:10] LABS: BILIRUBIN,URINE NEGATIVE (NEGATIVE); COLOR,URINE YELLOW (YELLOW); LEUKOCYTE ESTERASE ,URINE NEGATIVE (NEGATIVE); NITRITE, URINE NEGATIVE (NEGATIVE); PROTEIN,URINE NEGATIVE (NEGATIVE); UGLUCOSE NEGATIVE (NEGATIVE); UROBILINOGEN,URINE 0.2 EU/dL (0.2)
--- NOTE | 2021-05-13 01:00 | NUR ---
pt , a, ox4, ambulatory w/ steady gaits. denied SI/HI and reported willing to leave. stable and clear for d/c per MD. Patient discharged to home in stable condition. Written and verbal after care instructions given. Patient verbalizes understanding of instruction.
[2021-05-13 02:00] VITALS: BP 139/88
== END 2021-05-13 02:01 | disposition home or self-care (01) ==
LOC: ER 19:03
DX: F34.1 Dysthymic disorder (principal); R00.0 Tachycardia, unspecified; Z59.0 Homelessness; I10 Essential (primary) hypertension; Z20.822 Contact with and (suspected) exposure to COVID-19; F41.9 Anxiety disorder, unspecified; F19.10 Other psychoactive substance abuse, uncomplicated; Z88.1 Allergy status to other antibiotic agents
CPT/HCPCS: 36415; 80048; 80076; 80143; 80307; 80320; 81003; 85025; 87426; 99283; C9803; G0480

== ENCOUNTER 2021-06-02 11:40 | Emergency (ER) | payer OTHER ==
[~2021-06-02] VITALS: Ht 172.7 cm; Wt 93.0 kg
--- NOTE | 2021-06-02 12:02 | NUR ---
BIBRA60 [facility], FOUND PASSED OUT. C/O WEAKNESS. BG 89. REQUESTING TO TALK TO PSYCH. DENIES SI/HI. THE PATIENT IS ALERT AND ORIENTED X3. IN ROOM AND DENIES SOB. RESPIRATION REGULAR AN UNLABORED. DENIES PAIN. ATTACHED TO THE MONITOR. WARM BLANKET PROVIDED FOR COMFORT. WILL CONTINUE TO MONITOR THE PATIENT.
--- NOTE | 2021-06-02 15:00 | NUR ---
THE PATIENT IS SLEEPING. RESPONSIVE TO VERBAL STIMULI. WILL CONTINUE TO MONITOR THE PATIENT.
--- NOTE | 2021-06-02 16:08 | NUR ---
SS consult requested for ETOH abuse & possible homelessness. SW met with pt. bedside. The pt. is still very intoxicated and not rousable toverbal cues. SW placed homeless & addiction resources and waiver in chart for follow up upon D/C.
--- NOTE | 2021-06-02 18:43 | NUR ---
Patient given written and verbal discharge instructions. Patient verbalizes understanding of instructions. Patient is ambulatory with steady gait. Refuses offer of group home placement. Patient given list of available shelters in surrounding area. Patient refused to sign homeless waiver. Patient a/ox4, ambulatory with steady gait. Needs attended. Food provided.
[2021-06-02 19:02] VITALS: BP 136/69
== END 2021-06-02 19:03 | disposition home or self-care (01) ==
LOC: ER 11:46
DX: F10.129 Alcohol abuse with intoxication, unspecified (principal); I10 Essential (primary) hypertension; F32.9 Major depressive disorder, single episode, unspecified; F41.9 Anxiety disorder, unspecified; Z90.89 Acquired absence of other organs; Z88.1 Allergy status to other antibiotic agents; Z79.899 Other long term (current) drug therapy; Y90.9 Presence of alcohol in blood, level not specified

== ENCOUNTER 2021-06-04 07:06 | Emergency (ER) | payer OTHER ==
[~2021-06-04] VITALS: Ht 172.7 cm; Wt 93.0 kg
[2021-06-04 08:00] VITALS: BP 148/76
--- NOTE | 2021-06-04 08:02 | NUR ---
THE PATIENT BIBS FOR C/O BLE PAIN X1 DAY. RATES PAIN 6/10. WILL CONTINUE TO MONITOR THE PATIENT
[2021-06-04] MEDS ORDERED: IBUP-1953 PO (08:40)
== END 2021-06-04 10:46 | disposition home or self-care (01) ==
LOC: ER 07:07
DX: R25.2 Cramp and spasm (principal); I10 Essential (primary) hypertension; F32.9 Major depressive disorder, single episode, unspecified; F41.9 Anxiety disorder, unspecified; F10.10 Alcohol abuse, uncomplicated; Y90.9 Presence of alcohol in blood, level not specified; Z90.89 Acquired absence of other organs; Z88.1 Allergy status to other antibiotic agents; Z79.899 Other long term (current) drug therapy

== ENCOUNTER 2021-12-05 10:09 | Emergency (ER) | payer OTHER ==
[~2021-12-05] VITALS: Ht 167.6 cm; Wt 90.7 kg
[~2021-12-05 10:09] MED LIST changes: +IBUP-1953 PO
[2021-12-05 10:19] VITALS: BP 143/82
--- NOTE | 2021-12-05 10:19 | NUR ---
BIBS C/O ANXIETY, PT IS HOMELESS AND STATED HE USUALLY TAKES MEDICATION (CLONAPINE) BUT RAN OUT. HAS APPOINTMENT WITH MD TOMORROW.
[2021-12-05] MEDS ORDERED: clonazePAM 1 MG TABLET ONE (10:39)
[2021-12-05] MEDS ORDERED: CLON1TAB PO (10:47)
[2021-12-05] MEDS ORDERED: clonazePAM 1 MG TABLET PO ONE (11:00)
--- NOTE | 2021-12-05 11:06 | NUR ---
Patient discharged to home in stable condition. Written and verbal after care instructions given. Patient verbalizes understanding of instruction.
== END 2021-12-05 11:06 | disposition home or self-care (01) ==
LOC: ER 10:11
DX: F13.20 Sedative, hypnotic or anxiolytic dependence, uncomplicated (principal); F41.9 Anxiety disorder, unspecified; F32.9 Major depressive disorder, single episode, unspecified; Z76.0 Encounter for issue of repeat prescription; I10 Essential (primary) hypertension; Z59.00 Homelessness unspecified; Z90.89 Acquired absence of other organs; Z88.1 Allergy status to other antibiotic agents; Z79.899 Other long term (current) drug therapy

== ENCOUNTER 2022-01-31 16:21 | Emergency (ER) | payer OTHER ==
[~2022-01-31] VITALS: Ht 167.6 cm; Wt 88.5 kg
[~2022-01-31 16:21] MED LIST changes: +CLON1TAB PO
[2022-01-31 16:49] VITALS: BP 158/84
[2022-01-31] MEDS ORDERED: QUET100T PO (17:17)
[2022-01-31] MEDS ORDERED: LORAZEPAM 1 MG TABLET ONE (17:17)
[2022-01-31] MEDS ORDERED: LORAZEPAM 1 MG TABLET PO ONE (17:30)
--- NOTE | 2022-01-31 17:31 | NUR ---
Patient discharged to home in stable condition. Written and verbal after care instructions given. Patient verbalizes understanding of instruction.
== END 2022-01-31 17:32 | disposition home or self-care (01) ==
LOC: ER 16:25
DX: F41.0 Panic disorder [episodic paroxysmal anxiety] (principal); Z76.0 Encounter for issue of repeat prescription; I10 Essential (primary) hypertension; F32.A Depression, unspecified; F41.9 Anxiety disorder, unspecified; Z90.89 Acquired absence of other organs; Z88.1 Allergy status to other antibiotic agents; Z59.00 Homelessness unspecified; Z79.1 Long term (current) use of non-steroidal anti-inflammatories (NSAID); Z79.899 Other long term (current) drug therapy

== ENCOUNTER 2022-02-14 10:49 | Emergency (ER) | payer OTHER ==
[~2022-02-14] VITALS: Ht 167.6 cm; Wt 86.2 kg
[~2022-02-14 10:49] MED LIST changes: +QUET100T PO
--- NOTE | 2022-02-14 10:49 | NUR ---
PT BIB SELF C/O DEPRESSION REQUESTING PSYCH ADMISSION TO [facility]. PT IS AAOX4, NOT IN RESPIRATORY DISTRESS, V/S STABLE, KEPT RESTED AND COMFORTABLE. WILL CONTINUE TO MONITOR.
--- NOTE | 2022-02-14 10:56 | NUR ---
URINE SPECIMEN COLLECTED AND SENT TO LAB.
--- NOTE | 2022-02-14 11:00 | NUR ---
ER PHLEB AT BEDSIDE FOR BLOOD DRAW.
[2022-02-14 11:13] LABS: BASOPHILS # (AUTO) 0.1 K/uL (0.0-0.2); BASOPHILS % (AUTO) 0.8 % (0.0-2.0); EOSINOPHILS % (AUTO) 3.3 % (0.0-6.0); HEMATOCRIT 45 % (39-51); HEMOGLOBIN 14.8 g/dL (13.5-17.5); LYMPHOCYTES # (AUTO) 1.2 K/uL (0.8-4.8); LYMPHOCYTES % (AUTO) 16.7 % (20.0-44.0); MEAN CORPUSCULAR HGB CONC 33 g/dl (31.0-36.0); MEAN CORPUSCULAR VOLUME 87 fL (80-96); MONOCYTES # (AUTO) 0.6 K/uL (0.1-1.30); MONOCYTES % (AUTO) 8.3 % (2.0-12.0); NEUTROPHILS # (AUTO) 5.2 K/uL (1.8-8.9); NEUTROPHILS % (AUTO) 70.9 % (43.0-81.0); PLATELET COUNT (AUTO) 331 K/uL (150-450); RED BLOOD CELL COUNT(AUTO) 5.24 MIL/uL (4.5-6.0); WHITE BLOOD COUNT (AUTO) 7.3 K/uL (4.3-11.0)
[2022-02-14 11:16] LABS: BILIRUBIN,URINE NEGATIVE (NEGATIVE); COLOR,URINE YELLOW (YELLOW); LEUKOCYTE ESTERASE ,URINE NEGATIVE (NEGATIVE); NITRITE, URINE NEGATIVE (NEGATIVE); PROTEIN,URINE NEGATIVE (NEGATIVE); UGLUCOSE NEGATIVE (NEGATIVE)
[2022-02-14 11:28] LABS: ALBUMIN 3.5 g/dL (3.4-5.0); BILIRUBIN,DIRECT 0.1 mg/dL (0.0-0.2); BILIRUBIN,TOTAL 0.5 mg/dL (0.2-1.0); CALCIUM, SERUM 8.8 mg/dL (8.5-10.1); CREATININE 1.3 mg/dL (0.6-1.3); TOTAL PROTEIN, SERUM 6.7 g/dL (6.4-8.2)
[2022-02-14 11:34] LABS: BACTERIA,URINE None seen /HPF (None Seen); RBC,URINE 0-2 /HPF (0-2); SQUAMOUS EPITHELIAL CELL,UR Rare /HPF (None Seen); WBC,URINE 0-2 /HPF (0-3)
--- NOTE | 2022-02-14 12:10 | NUR ---
COVID SPECIMEN OBTAINED AND SENT TO LAB.
--- NOTE | 2022-02-14 13:11 | NUR ---
PAGED CLINICALS TO [facility]
[2022-02-14] MEDS ORDERED: LORAZEPAM 1 MG TABLET PO ONE (14:30)
[2022-02-14] MEDS ORDERED: LORAZEPAM 1 MG TABLET ONE (14:30)
--- NOTE | 2022-02-14 14:38 | NUR ---
PROVIDED W SANDWICH AND WATER. TOLERATED WELL
--- NOTE | 2022-02-14 15:16 | NUR ---
[facility], ref[facility]ed clinicals to [facility] [[phone]], awaiting for feedback.
--- NOTE | 2022-02-14 20:57 | NUR ---
PT ACCESS AT [facility] UNDER DR YAN CALL FOR REPORT [phone] ROOM NUMBER ON REPORT
--- NOTE | 2022-02-14 20:59 | NUR ---
[facility] ETA 45 MINUTES.
--- NOTE | 2022-02-14 21:33 | NUR ---
REPORT GIVEN TO EMS AT BEDSIDE
[2022-02-14 22:39] VITALS: BP 146/66
== END 2022-02-14 21:45 | disposition home or self-care (01) ==
LOC: ER 10:59
DX: F15.10 Other stimulant abuse, uncomplicated (principal); R45.851 Suicidal ideations; F32.A Depression, unspecified; Z59.00 Homelessness unspecified; I10 Essential (primary) hypertension; Z79.899 Other long term (current) drug therapy; F19.10 Other psychoactive substance abuse, uncomplicated; Z20.822 Contact with and (suspected) exposure to COVID-19
CPT/HCPCS: 36415; 80048; 80076; 80143; 80307; 80320; 81001; 85025; 87426; 99283; C9803; G0480

== ENCOUNTER 2022-03-07 07:16 | Emergency (ER) | payer OTHER ==
[~2022-03-07] VITALS: Ht 320 cm; Wt 86.2 kg
--- NOTE | 2022-03-07 07:16 | NUR ---
PT BIB SELF C/O MED REFILL OF XANAX AND DEPRESSION REQUESTING [facility] PT IS AAOX4, NOT IN RESPIRATORY DISTRESS, V/S STABLE, KEPT RESTED AND COMFORTABLE. WILL CONTINUE TO MONITOR.
--- NOTE | 2022-03-07 07:20 | NUR ---
URINAL GIVEN BUT UNABLE TO PROVIDE URINE SPECIMEN THIS TIME.
--- NOTE | 2022-03-07 07:26 | NUR ---
SECURITY AT BEDSIDE AND EMT FOR WANDING AND PLACED PT ON GOWN.
[2022-03-07] MEDS ORDERED: LORAZEPAM 1 MG TABLET PO ONE (07:30)
[2022-03-07] MEDS ORDERED: LORAZEPAM 1 MG TABLET ONE (07:37)
--- NOTE | 2022-03-07 07:37 | NUR ---
COVID SWAB SENT TO LAB
[2022-03-07 07:57] LABS: BASOPHILS % (AUTO) 0.7 % (0.0-2.0); EOSINOPHILS % (AUTO) 3.8 % (0.0-6.0); HEMATOCRIT 50 % (39-51); LYMPHOCYTES # (AUTO) 1.3 K/uL (0.8-4.8); LYMPHOCYTES % (AUTO) 19.4 % (20.0-44.0); MEAN CORPUSCULAR HGB CONC 32 g/dl (31.0-36.0); MEAN CORPUSCULAR VOLUME 87 fL (80-96); MONOCYTES # (AUTO) 0.6 K/uL (0.1-1.30); MONOCYTES % (AUTO) 8.4 % (2.0-12.0); NEUTROPHILS # (AUTO) 4.5 K/uL (1.8-8.9); NEUTROPHILS % (AUTO) 67.7 % (43.0-81.0); PLATELET COUNT (AUTO) 380 K/uL (150-450); WHITE BLOOD COUNT (AUTO) 6.6 K/uL (4.3-11.0)
[2022-03-07 08:17] LABS: CALCIUM, SERUM 8.8 mg/dL (8.5-10.1); CREATININE 1.3 mg/dL (0.6-1.3); POTASSIUM 4.8 mmol/L (3.5-5.1)
[2022-03-07 08:24] LABS: BILIRUBIN,DIRECT 0.1 mg/dL (0.0-0.2); BILIRUBIN,TOTAL 0.8 mg/dL (0.2-1.0); TOTAL PROTEIN, SERUM 7.8 g/dL (6.4-8.2)
--- NOTE | 2022-03-07 09:51 | NUR ---
Jimy maurer in [facility] - 03/07/22 at 0953 by JESSIE KD [facility]
--- NOTE | 2022-03-07 09:53 | NUR ---
FAXED CLINICALS TO [facility]
--- NOTE | 2022-03-07 10:14 | NUR ---
KARIE IS IN THE PROCESS OF REVIEWING PT.'S PACKET.
[2022-03-07 11:27] LABS: BILIRUBIN,URINE SMALL (NEGATIVE); COLOR,URINE YELLOW (YELLOW); LEUKOCYTE ESTERASE ,URINE NEGATIVE (NEGATIVE); NITRITE, URINE NEGATIVE (NEGATIVE); PROTEIN,URINE NEGATIVE (NEGATIVE); UGLUCOSE 250 MG/DL mg/dL (NEGATIVE)
[2022-03-07 11:36] LABS: RBC,URINE 0-2 /HPF (0-2); WBC,URINE 0-2 /HPF (0-3)
[2022-03-07 11:37] LABS: BACTERIA,URINE None seen /HPF (None Seen); MUCUS,URINE Few /LPF (None Seen); SQUAMOUS EPITHELIAL CELL,UR Rare /HPF (None Seen)
--- NOTE | 2022-03-07 16:00 | NUR ---
[facility] AT BEDSIDE FOR NON DESTRUCTIVE TESTING TECHNICIAN.
[2022-03-07 16:08] VITALS: BP 132/83
== END 2022-03-07 16:09 ==
LOC: ER 07:17
DX: R45.851 Suicidal ideations (principal); F15.10 Other stimulant abuse, uncomplicated; Z59.00 Homelessness unspecified; Z20.822 Contact with and (suspected) exposure to COVID-19; F19.10 Other psychoactive substance abuse, uncomplicated; F32.A Depression, unspecified; I10 Essential (primary) hypertension; F41.9 Anxiety disorder, unspecified
CPT/HCPCS: 36415; 80048; 80076; 80143; 80307; 80320; 81001; 85025; 87426; 99285; C9803; G0480

== ENCOUNTER 2022-03-12 09:40 | Emergency (ER) | payer OTHER ==
[~2022-03-12] VITALS: Ht 167.6 cm; Wt 83.9 kg
[2022-03-12 09:41] VITALS: BP 166/101
--- NOTE | 2022-03-12 09:41 | NUR ---
BIBS, HOMELESS, C/O ANXIETY x "COUPLE OF DAYS". -SI/HI. SMOKED CRYSTAL METH AND WEED x "COUPLE OF DAYS", ALSO C/O AUDITORY HALLUCINATION. TO ER 19. HOOKED TO MNITOR, ELEVATED BP. MADE AWARE. AWAITING MD FLORES
--- NOTE | 2022-03-12 09:49 | NUR ---
AT BEDSIDE FOR EVAL.
[2022-03-12] MEDS ORDERED: LORA-259 PO ×2 (09:52→09:56)
--- NOTE | 2022-03-12 10:00 | NUR ---
Patient discharged to home in stable condition. Written and verbal after care instructions given. Patient verbalizes understanding of instruction.
== END 2022-03-12 10:00 | disposition home or self-care (01) ==
LOC: ER 09:44
DX: F41.9 Anxiety disorder, unspecified (principal); F15.10 Other stimulant abuse, uncomplicated; I10 Essential (primary) hypertension; F32.A Depression, unspecified; Z90.89 Acquired absence of other organs; Z88.8 Allergy status to other drugs, medicaments and biological substances; Z79.899 Other long term (current) drug therapy

== ENCOUNTER 2022-03-15 16:21 | Emergency (ER) | payer OTHER ==
[~2022-03-15] VITALS: Ht 167.6 cm; Wt 83.9 kg
[~2022-03-15 16:21] MED LIST changes: +LORA-259 PO
[2022-03-15 17:34] LABS: BASOPHILS % (AUTO) 0.9 % (0.0-2.0); EOSINOPHILS % (AUTO) 2.5 % (0.0-6.0); HEMATOCRIT 40 % (39-51); HEMOGLOBIN 13.3 g/dL (13.5-17.5); LYMPHOCYTES # (AUTO) 1.3 K/uL (0.8-4.8); LYMPHOCYTES % (AUTO) 24.8 % (20.0-44.0); MEAN CORPUSCULAR HGB CONC 33 g/dl (31.0-36.0); MEAN CORPUSCULAR VOLUME 85 fL (80-96); MONOCYTES # (AUTO) 0.5 K/uL (0.1-1.30); MONOCYTES % (AUTO) 10.1 % (2.0-12.0); NEUTROPHILS # (AUTO) 3.3 K/uL (1.8-8.9); NEUTROPHILS % (AUTO) 61.7 % (43.0-81.0); PLATELET COUNT (AUTO) 307 K/uL (150-450); RED BLOOD CELL COUNT(AUTO) 4.69 MIL/uL (4.5-6.0); WHITE BLOOD COUNT (AUTO) 5.4 K/uL (4.3-11.0)
[2022-03-15 18:09] LABS: CALCIUM, SERUM 7.9 mg/dL (8.5-10.1); CARBON DIOXIDE 25 mmol/L (21-32); CHLORIDE 105 mmol/L (98-107); CREATININE 1.3 mg/dL (0.6-1.3); GLUCOSE 179 mg/dL (74-106); SODIUM SERUM 137 mmol/L (136-145); UREA NITROGEN, BLOOD 23 mg/dL (7-18)
[2022-03-15 19:15] LABS: ACETAMINOPHEN 1 ug/ml (10-30); ALANINE AMINOTRANSFERASE 33 U/L (12-78); ALBUMIN 3.2 g/dL (3.4-5.0); ALKALINE PHOSPHATASE 100 U/L (46-116); ASPARTATE AMINOTRANSFERASE 16 U/L (15-37); BILIRUBIN,TOTAL 0.2 mg/dL (0.2-1.0); TOTAL PROTEIN, SERUM 5.9 g/dL (6.4-8.2)
[2022-03-15 19:22] LABS: ALCOHOL, BLOOD < 3 mg/dL (0-0)
[2022-03-15 20:28] LABS: BILIRUBIN,URINE NEGATIVE (NEGATIVE); COLOR,URINE YELLOW (YELLOW); LEUKOCYTE ESTERASE ,URINE NEGATIVE (NEGATIVE); NITRITE, URINE NEGATIVE (NEGATIVE); PH,URINE 6.5 (5.0-8.0); PROTEIN,URINE NEGATIVE (NEGATIVE); UGLUCOSE 100 MG/DL mg/dL (NEGATIVE); UROBILINOGEN,URINE 0.2 EU/dL (0.2)
[2022-03-15 20:41] LABS: BACTERIA,URINE Rare /HPF (None Seen); RBC,URINE 0-2 /HPF (0-2); SQUAMOUS EPITHELIAL CELL,UR Rare /HPF (None Seen); WBC,URINE 0-2 /HPF (0-3)
[2022-03-16 00:52] VITALS: BP 140/90
== END 2022-03-16 01:05 ==
LOC: ER 16:21
DX: F41.9 Anxiety disorder, unspecified (principal); F31.9 Bipolar disorder, unspecified; Z59.00 Homelessness unspecified; Z79.899 Other long term (current) drug therapy; I10 Essential (primary) hypertension; F19.10 Other psychoactive substance abuse, uncomplicated; Z20.822 Contact with and (suspected) exposure to COVID-19
CPT/HCPCS: 36415; 80048; 80076; 80143; 80307; 80320; 81001; 85025; 87426; 99284; C9803; G0480

== ENCOUNTER 2022-03-26 07:14 | Emergency (ER) | payer OTHER ==
[~2022-03-26] VITALS: Ht 177.8 cm; Wt 70.3 kg
--- NOTE | 2022-03-26 07:32 | NUR ---
BIBS FOR S/I WITH PLAN TO CUT WRIST. SEEKING VOLUNTARY ADMISSION TO [facility]. PATIENT ALERT AND ORIENTED X3. AMBULATORY WITH NON LABORED BREATHING BELONGINGS TAKEN AND PLACED IN BED 18 AWAITING MD FLORES.
--- NOTE | 2022-03-26 07:33 | NUR ---
SANDEE DONE AND SENT TO LAB
[2022-03-26 07:59] LABS: BASOPHILS # (AUTO) 0.1 K/uL (0.0-0.2); BASOPHILS % (AUTO) 1.2 % (0.0-2.0); EOSINOPHILS % (AUTO) 4.5 % (0.0-6.0); HEMATOCRIT 44 % (39-51); HEMOGLOBIN 14.1 g/dL (13.5-17.5); LYMPHOCYTES # (AUTO) 1.4 K/uL (0.8-4.8); LYMPHOCYTES % (AUTO) 23.7 % (20.0-44.0); MEAN CORPUSCULAR HGB CONC 32 g/dl (31.0-36.0); MEAN CORPUSCULAR VOLUME 85 fL (80-96); MONOCYTES # (AUTO) 0.7 K/uL (0.1-1.30); MONOCYTES % (AUTO) 11.4 % (2.0-12.0); NEUTROPHILS # (AUTO) 3.4 K/uL (1.8-8.9); NEUTROPHILS % (AUTO) 59.2 % (43.0-81.0); PLATELET COUNT (AUTO) 355 K/uL (150-450); RED BLOOD CELL COUNT(AUTO) 5.11 MIL/uL (4.5-6.0); WHITE BLOOD COUNT (AUTO) 5.7 K/uL (4.3-11.0)
[2022-03-26] MEDS ORDERED: LORAZEPAM 1 MG TABLET ONE (08:19)
[2022-03-26 08:21] LABS: CALCIUM, SERUM 8.7 mg/dL (8.5-10.1); CARBON DIOXIDE 31 mmol/L (21-32); CHLORIDE 106 mmol/L (98-107); CREATININE 1.3 mg/dL (0.6-1.3); GLUCOSE 100 mg/dL (74-106); POTASSIUM 3.9 mmol/L (3.5-5.1); SODIUM SERUM 141 mmol/L (136-145); UREA NITROGEN, BLOOD 20 mg/dL (7-18)
--- NOTE | 2022-03-26 08:22 | NUR ---
Ativan 1 mg PO x 1 given
[2022-03-26 08:26] LABS: ALANINE AMINOTRANSFERASE 39 U/L (12-78); ALBUMIN 3.9 g/dL (3.4-5.0); ALCOHOL, BLOOD < 3 mg/dL (0-0); ALKALINE PHOSPHATASE 106 U/L (46-116); ASPARTATE AMINOTRANSFERASE 23 U/L (15-37); BILIRUBIN,DIRECT 0.1 mg/dL (0.0-0.2); BILIRUBIN,TOTAL 0.5 mg/dL (0.2-1.0); TOTAL PROTEIN, SERUM 7.3 g/dL (6.4-8.2)
[2022-03-26 08:28] LABS: BILIRUBIN,URINE NEGATIVE (NEGATIVE); COLOR,URINE YELLOW (YELLOW); LEUKOCYTE ESTERASE ,URINE NEGATIVE (NEGATIVE); NITRITE, URINE NEGATIVE (NEGATIVE); PROTEIN,URINE NEGATIVE (NEGATIVE); UGLUCOSE NEGATIVE (NEGATIVE)
[2022-03-26] MEDS ORDERED: LORAZEPAM 1 MG TABLET PO ONE (08:30)
[2022-03-26 08:35] LABS: ACETAMINOPHEN < 10 ug/ml (10-30)
[2022-03-26 08:42] LABS: BACTERIA,URINE Rare /HPF (None Seen); RBC,URINE NONE SEEN /HPF (0-2); SQUAMOUS EPITHELIAL CELL,UR Rare /HPF (None Seen); WBC,URINE 0-2 /HPF (0-3)
--- NOTE | 2022-03-26 11:04 | NUR ---
jose RN supervisor tree trimming of [facility] - accepted the patient
--- NOTE | 2022-03-26 11:08 | NUR ---
[facility] CALLED FOR TRANSPORT ETA OF 90 MINS.
[2022-03-26] MEDS ORDERED: LORA-259 PO (12:39)
--- NOTE | 2022-03-26 12:40 | NUR ---
the patient feels better - ne no longer wants to be admitted to [facility]. The patient denies SI or homicidal ideation. Patient discharged to home in stable condition. Written and verbal after care instructions given. Patient verbalizes understanding of instruction.
[2022-03-26 12:44] VITALS: BP 156/90
== END 2022-03-26 12:44 | disposition home or self-care (01) ==
LOC: ER 08:23
DX: F41.9 Anxiety disorder, unspecified (principal); Z20.822 Contact with and (suspected) exposure to COVID-19; Z59.00 Homelessness unspecified; F31.9 Bipolar disorder, unspecified; F19.10 Other psychoactive substance abuse, uncomplicated; F15.10 Other stimulant abuse, uncomplicated; Z53.20 Procedure and treatment not carried out because of patient's decision for unspecified reasons; R03.0 Elevated blood-pressure reading, without diagnosis of hypertension
CPT/HCPCS: 36415; 80048; 80076; 80143; 80307; 80320; 81001; 85025; 87426; 99285; C9803; G0480

== ENCOUNTER 2022-03-28 17:50 | Emergency (ER) | payer OTHER ==
[~2022-03-28] VITALS: Ht 177.8 cm; Wt 70.8 kg
--- NOTE | 2022-03-28 17:55 | NUR ---
BIBS C/O FEELING SUICIDAL, NO PLAN DENIES HI. REQUESTING VOLUNTARY ADMISSION TO [facility]. SAFETY PRECAUTIONS IN PLACE 1:1 SITTER. VITALS ARE WITHIN NORMAL LIMITS.
[2022-03-28 18:19] LABS: BASOPHILS % (AUTO) 0.4 % (0.0-2.0); EOSINOPHILS % (AUTO) 2.7 % (0.0-6.0); HEMATOCRIT 45 % (39-51); HEMOGLOBIN 14.6 g/dL (13.5-17.5); LYMPHOCYTES # (AUTO) 1.2 K/uL (0.8-4.8); LYMPHOCYTES % (AUTO) 19.1 % (20.0-44.0); MEAN CORPUSCULAR HGB CONC 33 g/dl (31.0-36.0); MEAN CORPUSCULAR VOLUME 85 fL (80-96); MONOCYTES # (AUTO) 0.5 K/uL (0.1-1.30); NEUTROPHILS # (AUTO) 4.5 K/uL (1.8-8.9); NEUTROPHILS % (AUTO) 69.8 % (43.0-81.0); PLATELET COUNT (AUTO) 391 K/uL (150-450); RED BLOOD CELL COUNT(AUTO) 5.26 MIL/uL (4.5-6.0); WHITE BLOOD COUNT (AUTO) 6.5 K/uL (4.3-11.0)
[2022-03-28] MEDS ORDERED: LORAZEPAM 1 MG TABLET PO ONE (18:30)
[2022-03-28 18:36] LABS: CALCIUM, SERUM 8.8 mg/dL (8.5-10.1); CARBON DIOXIDE 28 mmol/L (21-32); CHLORIDE 101 mmol/L (98-107); CREATININE 1.3 mg/dL (0.6-1.3); GLUCOSE 92 mg/dL (74-106); POTASSIUM 4.3 mmol/L (3.5-5.1); SODIUM SERUM 137 mmol/L (136-145); UREA NITROGEN, BLOOD 16 mg/dL (7-18)
[2022-03-28 18:40] LABS: ALANINE AMINOTRANSFERASE 33 U/L (12-78); ALBUMIN 3.9 g/dL (3.4-5.0); ALKALINE PHOSPHATASE 112 U/L (46-116); ASPARTATE AMINOTRANSFERASE 21 U/L (15-37); BILIRUBIN,DIRECT 0.1 mg/dL (0.0-0.2); BILIRUBIN,TOTAL 0.6 mg/dL (0.2-1.0); TOTAL PROTEIN, SERUM 7.4 g/dL (6.4-8.2)
[2022-03-28 18:42] LABS: ACETAMINOPHEN < 0 ug/ml (10-30); ALCOHOL, BLOOD < 3 mg/dL (0-0)
[2022-03-28] MEDS ORDERED: LORAZEPAM 1 MG TABLET ONE (18:44)
--- NOTE | 2022-03-28 18:46 | NUR ---
COVID TEST COLLECTED AND SENT
--- NOTE | 2022-03-28 18:48 | NUR ---
URINE COLLECTED AND SENT
[2022-03-28 19:42] LABS: BILIRUBIN,URINE NEGATIVE (NEGATIVE); COLOR,URINE YELLOW (YELLOW); LEUKOCYTE ESTERASE ,URINE NEGATIVE (NEGATIVE); NITRITE, URINE NEGATIVE (NEGATIVE); PH,URINE 5.5 (5.0-8.0); PROTEIN,URINE NEGATIVE (NEGATIVE); UGLUCOSE NEGATIVE (NEGATIVE)
[2022-03-28 19:54] LABS: BACTERIA,URINE None seen /HPF (None Seen); MUCUS,URINE Few /LPF (None Seen); RBC,URINE 0-2 /HPF (0-2); SQUAMOUS EPITHELIAL CELL,UR 0-2 /HPF (None Seen); WBC,URINE 0-2 /HPF (0-3)
--- NOTE | 2022-03-28 20:00 | NUR ---
FAXED CLINICALS TO [facility]
--- NOTE | 2022-03-29 00:13 | NUR ---
ACCORDING TO [facility] NO BE AVAILABLE AT [facility] AT THIS TIME
--- NOTE | 2022-03-29 02:30 | NUR ---
accepted at [facility] by dr john #[phone] [facility] ETA: 5min
--- NOTE | 2022-03-29 02:33 | NUR ---
REPORT GIVEN TO SIMONE MAYER SUP FOR [facility]
--- NOTE | 2022-03-29 02:42 | NUR ---
[facility] [id number] at bedside for pt transport to [facility]. pt is in stable condition. ambulatory on steady gait.
[2022-03-29 03:10] VITALS: BP 148/76
== END 2022-03-29 02:55 ==
LOC: ER 17:51
DX: R45.851 Suicidal ideations (principal); F31.9 Bipolar disorder, unspecified; F19.10 Other psychoactive substance abuse, uncomplicated; Z59.00 Homelessness unspecified; I10 Essential (primary) hypertension; F41.9 Anxiety disorder, unspecified; Z79.899 Other long term (current) drug therapy; Z20.822 Contact with and (suspected) exposure to COVID-19
CPT/HCPCS: 36415; 80048; 80076; 80143; 80307; 80320; 81001; 85025; 87426; 99285; C9803; G0480

== ENCOUNTER 2022-04-09 08:03 | Emergency (ER) | payer OTHER ==
[~2022-04-09] VITALS: Ht 177.8 cm; Wt 70.8 kg
--- NOTE | 2022-04-09 08:15 | NUR ---
URINE COLLECTED AND SENT TO LAB
--- NOTE | 2022-04-09 08:19 | NUR ---
COVID SWAB DONE AND SENT TO LAB
[2022-04-09 08:44] LABS: BILIRUBIN,URINE SMALL (NEGATIVE); COLOR,URINE YELLOW (YELLOW); LEUKOCYTE ESTERASE ,URINE NEGATIVE (NEGATIVE); NITRITE, URINE NEGATIVE (NEGATIVE); PROTEIN,URINE NEGATIVE (NEGATIVE); UGLUCOSE NEGATIVE (NEGATIVE); UROBILINOGEN,URINE 0.2 EU/dL (0.2)
[2022-04-09 08:52] LABS: BASOPHILS % (AUTO) 0.7 % (0.0-2.0); EOSINOPHILS % (AUTO) 1.8 % (0.0-6.0); HEMATOCRIT 41 % (39-51); HEMOGLOBIN 13.4 g/dL (13.5-17.5); LYMPHOCYTES % (AUTO) 17.2 % (20.0-44.0); MEAN CORPUSCULAR HGB CONC 33 g/dl (31.0-36.0); MEAN CORPUSCULAR VOLUME 84 fL (80-96); MONOCYTES # (AUTO) 0.5 K/uL (0.1-1.30); MONOCYTES % (AUTO) 8.5 % (2.0-12.0); NEUTROPHILS # (AUTO) 4.2 K/uL (1.8-8.9); NEUTROPHILS % (AUTO) 71.8 % (43.0-81.0); PLATELET COUNT (AUTO) 287 K/uL (150-450); RED BLOOD CELL COUNT(AUTO) 4.87 MIL/uL (4.5-6.0); WHITE BLOOD COUNT (AUTO) 5.8 K/uL (4.3-11.0)
--- NOTE | 2022-04-09 09:00 | NUR ---
BREAKFAST PROVIDED, TOLERATED WELL
[2022-04-09 09:08] LABS: BACTERIA,URINE None seen /HPF (None Seen); RBC,URINE NONE SEEN /HPF (0-2); SQUAMOUS EPITHELIAL CELL,UR Few /HPF (None Seen); WBC,URINE 0-2 /HPF (0-3)
[2022-04-09 09:11] LABS: ALANINE AMINOTRANSFERASE 35 U/L (12-78); ALBUMIN 3.9 g/dL (3.4-5.0); ALKALINE PHOSPHATASE 112 U/L (46-116); ASPARTATE AMINOTRANSFERASE 39 U/L (15-37); BILIRUBIN,DIRECT 0.3 mg/dL (0.0-0.2); BILIRUBIN,TOTAL 1.2 mg/dL (0.2-1.0); CALCIUM, SERUM 9.1 mg/dL (8.5-10.1); CARBON DIOXIDE 28 mmol/L (21-32); CHLORIDE 103 mmol/L (98-107); CREATININE 1.3 mg/dL (0.6-1.3); GLUCOSE 96 mg/dL (74-106); POTASSIUM 4.3 mmol/L (3.5-5.1); SODIUM SERUM 137 mmol/L (136-145); TOTAL PROTEIN, SERUM 7.2 g/dL (6.4-8.2); UREA NITROGEN, BLOOD 20 mg/dL (7-18)
[2022-04-09 09:19] LABS: ACETAMINOPHEN < 0 ug/ml (10-30); ALCOHOL, BLOOD < 3 mg/dL (0-0)
--- NOTE | 2022-04-09 12:00 | NUR ---
Pt Ambulatory, cooperative and compliant with care. Awaiting acceptance in psych Facility- voluntary admission
[2022-04-09] MEDS ORDERED: LORAZEPAM 0.5 MG TABLET ONE (13:17)
[2022-04-09] MEDS ORDERED: LORAZEPAM 1 MG TABLET PO ONE (13:30)
--- NOTE | 2022-04-09 15:26 | NUR ---
Transporting Personnel (Sh[facility]) from [facility] [place] of here to pick pt up. All belongings returned. Given Brown Bagged Lunch to go. VSS NO acute changes/distress
--- NOTE | 2022-04-09 15:26 | NUR ---
Patient discharged to [facility] in stable condition. Patient verbalizes understanding of instruction.
--- NOTE | 2022-04-09 15:26 | NUR ---
THE PATIENT IS ACCEPTED TO [facility] REPORT GIVEN TO SIMONE KAUR
[2022-04-09 15:29] VITALS: BP 137/79
== END 2022-04-09 15:30 ==
LOC: ER 08:10
DX: R45.851 Suicidal ideations (principal); Z20.822 Contact with and (suspected) exposure to COVID-19; F31.9 Bipolar disorder, unspecified; F19.10 Other psychoactive substance abuse, uncomplicated; Z59.00 Homelessness unspecified; F41.9 Anxiety disorder, unspecified; Z79.899 Other long term (current) drug therapy
CPT/HCPCS: 36415; 80048; 80076; 80143; 80307; 80320; 81001; 85025; 87426; 99285; C9803; G0480

== ENCOUNTER 2022-04-17 19:32 | Emergency (ER) | payer OTHER ==
[~2022-04-17] VITALS: Ht 167.6 cm; Wt 81.6 kg
--- NOTE | 2022-04-17 21:15 | NUR ---
TO ER BED 18. BIBS C/O FEELING DEPRESSED WANTS VOLUNTARY PSYCH ADMIT. CHANGED INTO GOWN. ALL BELONGING OBTAINED AND SECURED IN LOCKER. SAFETY PRECAUTIONS IN PLACE. CONNECTED TO MONITOR. AWAITING MD FLORES
[2022-04-17 21:52] LABS: BASOPHILS % (AUTO) 0.4 % (0.0-2.0); EOSINOPHILS % (AUTO) 0.5 % (0.0-6.0); HEMATOCRIT 42 % (39-51); HEMOGLOBIN 14.2 g/dL (13.5-17.5); LYMPHOCYTES # (AUTO) 1.6 K/uL (0.8-4.8); LYMPHOCYTES % (AUTO) 18.7 % (20.0-44.0); MEAN CORPUSCULAR HGB CONC 33 g/dl (31.0-36.0); MEAN CORPUSCULAR VOLUME 83 fL (80-96); MONOCYTES % (AUTO) 11.1 % (2.0-12.0); NEUTROPHILS # (AUTO) 5.9 K/uL (1.8-8.9); NEUTROPHILS % (AUTO) 69.3 % (43.0-81.0); PLATELET COUNT (AUTO) 342 K/uL (150-450); RED BLOOD CELL COUNT(AUTO) 5.09 MIL/uL (4.5-6.0); WHITE BLOOD COUNT (AUTO) 8.6 K/uL (4.3-11.0)
[2022-04-17] MEDS ORDERED: QUETIAPINE FUMARATE 25 MG TABLET ONE (21:52)
[2022-04-17] MEDS ORDERED: LORAZEPAM 1 MG TABLET ONE (21:52)
[2022-04-17 21:59] LABS: BILIRUBIN,URINE NEGATIVE (NEGATIVE); COLOR,URINE YELLOW (YELLOW); LEUKOCYTE ESTERASE ,URINE NEGATIVE (NEGATIVE); NITRITE, URINE NEGATIVE (NEGATIVE); PROTEIN,URINE NEGATIVE (NEGATIVE); UGLUCOSE NEGATIVE (NEGATIVE); UROBILINOGEN,URINE 0.2 EU/dL (0.2)
[2022-04-17] MEDS ORDERED: LORAZEPAM 1 MG TABLET PO ONE (22:00)
[2022-04-17] MEDS ORDERED: QUETIAPINE FUMARATE 25 MG TABLET PO SCH (22:00)
[2022-04-17 22:09] LABS: CALCIUM, SERUM 9.4 mg/dL (8.5-10.1); CARBON DIOXIDE 24 mmol/L (21-32); CHLORIDE 97 mmol/L (98-107); CREATININE 1.5 mg/dL (0.6-1.3); GLUCOSE 104 mg/dL (74-106); POTASSIUM 4.7 mmol/L (3.5-5.1); SODIUM SERUM 131 mmol/L (136-145); UREA NITROGEN, BLOOD 54 mg/dL (7-18)
[2022-04-17 22:18] LABS: BACTERIA,URINE None seen /HPF (None Seen); MUCUS,URINE Few /LPF (None Seen); RBC,URINE 0-2 /HPF (0-2); SQUAMOUS EPITHELIAL CELL,UR 0-2 /HPF (None Seen); URIC ACID CRYSTALS,URINE Few /HPF (None Seen); WBC,URINE 0-2 /HPF (0-3)
[2022-04-17 22:21] LABS: ALANINE AMINOTRANSFERASE 49 U/L (12-78); ALBUMIN 4.6 g/dL (3.4-5.0); ALKALINE PHOSPHATASE 89 U/L (46-116); ASPARTATE AMINOTRANSFERASE 65 U/L (15-37); BILIRUBIN,DIRECT 0.2 mg/dL (0.0-0.2); BILIRUBIN,TOTAL 1.1 mg/dL (0.2-1.0); TOTAL PROTEIN, SERUM 8.3 g/dL (6.4-8.2)
[2022-04-17 22:23] LABS: ACETAMINOPHEN < 2 ug/ml (10-30); ALCOHOL, BLOOD < 3 mg/dL (0-0)
[2022-04-17] MEDS ORDERED: IV NS 0.9% 1,000 ML BAG IV ONE (23:30)
--- NOTE | 2022-04-18 | NUR ---
PATIENT PROVIDED WITH WARM BLANKET FOR COMFORT.
--- NOTE | 2022-04-18 | NUR ---
IV LINE ESTABLISHED, LWRIST 20G
--- NOTE | 2022-04-18 00:38 | NUR ---
PT AMBULATED TO BATHROOM, STEADY GAIT NOTED
--- NOTE | 2022-04-18 05:12 | NUR ---
PT IS SLEEPING, EASILY AROUSABLE. WILL CONTINUE TO MONITOR.
--- NOTE | 2022-04-18 05:57 | NUR ---
FACESHEET AND CLINICALS FAXED TO [facility].
--- NOTE | 2022-04-18 09:44 | NUR ---
Pt. accepted to [facility] under Dr. Waggoner. Number to report: [phone] Per Eliane, she will call back with ETA.
--- NOTE | 2022-04-18 09:57 | NUR ---
CALLED [facility] AND SET UP S TRANSPORTATION ETA 1300
[2022-04-18 13:00] VITALS: BP 128/80
--- NOTE | 2022-04-18 13:52 | NUR ---
patient picked up by private ambulance in no distress accompanied by 2 emt going to [facility]. In stable condition.
== END 2022-04-18 13:52 ==
LOC: ER 19:34
DX: F32.A Depression, unspecified (principal); Z59.00 Homelessness unspecified; L55.0 Sunburn of first degree; E86.0 Dehydration; R74.01 Elevation of levels of liver transaminase levels; N28.9 Disorder of kidney and ureter, unspecified; F15.10 Other stimulant abuse, uncomplicated; F10.10 Alcohol abuse, uncomplicated; Y90.0 Blood alcohol level of less than 20 mg/100 ml; F41.9 Anxiety disorder, unspecified; K21.9 Gastro-esophageal reflux disease without esophagitis; I10 Essential (primary) hypertension; Z20.822 Contact with and (suspected) exposure to COVID-19
CPT/HCPCS: 36415; 80048; 80076; 80143; 80307; 80320; 81001; 85025; 87426; 96360; 99285; C9803; J7030; G0480

== ENCOUNTER 2022-08-09 08:21 | Emergency (ER) | payer OTHER ==
[~2022-08-09] VITALS: Ht 167.6 cm; Wt 82.6 kg
--- NOTE | 2022-08-09 08:59 | NUR ---
PATIENT BIBSELF C/O FEELING SUICIDAL BY CUTTING HIS WRIST,REQUESTING VOLUNTARY ADMISSION TO PSYCH. PATIENT IS A/O X 4, RR EVEN AND UNLABORED NO SOB NOTED. VSS. PATIENT IS AFEBRILE. NO ACUTE DISTRESS NOTED. PATIENT TAKEN TO ER BED 18, WANDED BY SECURITY AND BELONGINGS TAKEN. PATIENT AMBULATES WITH STEADY GAIT. PATIENT SKIN IS INTACT. WILL CONTINUE TO MONITOR.
--- NOTE | 2022-08-09 09:00 | NUR ---
Jimy maurer in [facility] - 08/09/22 at 0913 by NATHANIEL URINE COLLECTED AND SENT
--- NOTE | 2022-08-09 09:00 | NUR ---
URINE COLLECTED AND SENT
--- NOTE | 2022-08-09 09:03 | NUR ---
lab at bedside for blood draw
--- NOTE | 2022-08-09 09:03 | NUR ---
covid swab collected sent to lab
[2022-08-09 09:05] VITALS: BP 133/88
[2022-08-09 09:15] LABS: EOSINOPHILS % (AUTO) 3.2 % (0.0-6.0); HEMATOCRIT 40 % (39-51); HEMOGLOBIN 13.1 g/dL (13.5-17.5); LYMPHOCYTES # (AUTO) 1.1 K/uL (0.8-4.8); MEAN CORPUSCULAR HGB CONC 33 g/dl (31.0-36.0); MEAN CORPUSCULAR VOLUME 89 fL (80-96); MONOCYTES # (AUTO) 0.5 K/uL (0.1-1.30); MONOCYTES % (AUTO) 11.1 % (2.0-12.0); NEUTROPHILS # (AUTO) 2.5 K/uL (1.8-8.9); NEUTROPHILS % (AUTO) 58.7 % (43.0-81.0); PLATELET COUNT (AUTO) 349 K/uL (150-450); RED BLOOD CELL COUNT(AUTO) 4.44 MIL/uL (4.5-6.0); WHITE BLOOD COUNT (AUTO) 4.2 K/uL (4.3-11.0)
[2022-08-09 09:18] LABS: BILIRUBIN,URINE NEGATIVE (NEGATIVE); COLOR,URINE YELLOW (YELLOW); LEUKOCYTE ESTERASE ,URINE NEGATIVE (NEGATIVE); NITRITE, URINE NEGATIVE (NEGATIVE); PROTEIN,URINE NEGATIVE (NEGATIVE); UGLUCOSE NEGATIVE (NEGATIVE); UROBILINOGEN,URINE 0.2 EU/dL (0.2)
[2022-08-09 09:39] LABS: CARBON DIOXIDE 30 mmol/L (21-32); CHLORIDE 107 mmol/L (98-107); CREATININE 1.3 mg/dL (0.6-1.3); GLUCOSE 86 mg/dL (74-106); POTASSIUM 4.6 mmol/L (3.5-5.1); SODIUM SERUM 142 mmol/L (136-145); UREA NITROGEN, BLOOD 19 mg/dL (7-18)
[2022-08-09 09:53] LABS: ALANINE AMINOTRANSFERASE 26 U/L (12-78); ALBUMIN 3.5 g/dL (3.4-5.0); ALCOHOL, BLOOD < 3 mg/dL (0-0); ALKALINE PHOSPHATASE 91 U/L (46-116); ASPARTATE AMINOTRANSFERASE 16 U/L (15-37); BILIRUBIN,DIRECT 0.1 mg/dL (0.0-0.2); BILIRUBIN,TOTAL 0.2 mg/dL (0.2-1.0); TOTAL PROTEIN, SERUM 6.7 g/dL (6.4-8.2)
[2022-08-09 10:10] LABS: BACTERIA,URINE Few /HPF (None Seen); RBC,URINE 0-2 /HPF (0-2); SQUAMOUS EPITHELIAL CELL,UR Few /HPF (None Seen); WBC,URINE 0-2 /HPF (0-3)
[2022-08-09 10:12] LABS: ACETAMINOPHEN 0 ug/ml (10-30)
--- NOTE | 2022-08-09 12:38 | NUR ---
FAXED FACESHEET AND CLINICALS TO [facility]
--- NOTE | 2022-08-09 15:40 | NUR ---
TRANSFER INFO: PT ACCEPTED AT [facility] BY DR LIEBERMAN, RN FOR REPORT [phone]
--- NOTE | 2022-08-09 15:56 | NUR ---
[facility] ETA 3216
--- NOTE | 2022-08-09 17:45 | NUR ---
PT TRANSPORTED TO [facility] IN STABLE CONDITION, PT RECIEVED HIS BELONGINGS.
== END 2022-08-09 18:36 ==
LOC: ER 08:28
DX: F23 Brief psychotic disorder (principal); F20.0 Paranoid schizophrenia; Z59.00 Homelessness unspecified; F15.10 Other stimulant abuse, uncomplicated; R45.851 Suicidal ideations; Z20.822 Contact with and (suspected) exposure to COVID-19; F19.10 Other psychoactive substance abuse, uncomplicated; F31.9 Bipolar disorder, unspecified; I10 Essential (primary) hypertension; F41.9 Anxiety disorder, unspecified
CPT/HCPCS: 99285; 85025; 80048; 80076; 81001; 36415; 87426; 80143; 80320; 80307; C9803; G0480

== ENCOUNTER 2022-08-26 16:37 | Emergency (ER) | payer OTHER ==
[~2022-08-26] VITALS: Ht 167.6 cm; Wt 86.2 kg
--- NOTE | 2022-08-26 17:50 | NUR ---
COVID SWAB DONE AND SENT TO LAB
--- NOTE | 2022-08-26 17:50 | NUR ---
URINE COLLECTED AND SENT
[2022-08-26 18:11] LABS: HEMATOCRIT 38 % (39-51); MONOCYTES # (AUTO) 0.5 K/uL (0.1-1.30); NEUTROPHILS # (AUTO) 2.7 K/uL (1.8-8.9); PLATELET COUNT (AUTO) 335 K/uL (150-450)
[2022-08-26 18:28] LABS: ALANINE AMINOTRANSFERASE 25 U/L (12-78); ALBUMIN 3.2 g/dL (3.4-5.0); ALCOHOL, BLOOD < 3 mg/dL (0-0); ALKALINE PHOSPHATASE 79 U/L (46-116); ASPARTATE AMINOTRANSFERASE 19 U/L (15-37); BILIRUBIN,TOTAL 0.2 mg/dL (0.2-1.0); CALCIUM, SERUM 8.5 mg/dL (8.5-10.1); CARBON DIOXIDE 26 mmol/L (21-32); CHLORIDE 107 mmol/L (98-107); CREATININE 1.2 mg/dL (0.6-1.3); GLUCOSE 124 mg/dL (74-106); SODIUM SERUM 139 mmol/L (136-145); UREA NITROGEN, BLOOD 15 mg/dL (7-18)
[2022-08-26 18:31] LABS: ACETAMINOPHEN 0 ug/ml (10-30)
[2022-08-26 19:58] LABS: BILIRUBIN,URINE NEGATIVE (NEGATIVE); COLOR,URINE YELLOW (YELLOW); LEUKOCYTE ESTERASE ,URINE NEGATIVE (NEGATIVE); NITRITE, URINE NEGATIVE (NEGATIVE); PH,URINE 6.5 (5.0-8.0); PROTEIN,URINE NEGATIVE (NEGATIVE); UGLUCOSE NEGATIVE (NEGATIVE)
[2022-08-26 19:58] LABS: BASOPHILS # (AUTO) 0.1 K/uL (0.0-0.2); BASOPHILS % (AUTO) 1.2 % (0.0-2.0); EOSINOPHILS % (AUTO) 5.1 % (0.0-6.0); HEMOGLOBIN 12.9 g/dL (13.5-17.5); LYMPHOCYTES # (AUTO) 1.6 K/uL (0.8-4.8); LYMPHOCYTES % (AUTO) 30.8 % (20.0-44.0); MEAN CORPUSCULAR HGB CONC 34 g/dl (31.0-36.0); MEAN CORPUSCULAR VOLUME 89 fL (80-96); MONOCYTES % (AUTO) 10.6 % (2.0-12.0); NEUTROPHILS % (AUTO) 52.3 % (43.0-81.0); WHITE BLOOD COUNT (AUTO) 5.2 K/uL (4.3-11.0)
[2022-08-26 20:18] LABS: BACTERIA,URINE None seen /HPF (None Seen); RBC,URINE 0-2 /HPF (0-2); SQUAMOUS EPITHELIAL CELL,UR 0-2 /HPF (None Seen); WBC,URINE 0-2 /HPF (0-3)
--- NOTE | 2022-08-26 20:58 | NUR ---
FAXED CLINICALS TO [facility]
--- NOTE | 2022-08-27 02:05 | NUR ---
SPOKE TO MYLENE - [facility] WILL ACCEPT THE PT @0800 AND CALL TO GIVE ACCEPT INFO
--- NOTE | 2022-08-27 07:41 | NUR ---
PT ACCEPTED AT [facility] PER MAYRA ([facility]) UNDER DR. GOLDSTEIN [phone] [phone]
--- NOTE | 2022-08-27 07:44 | NUR ---
ETA 0900 [facility].
--- NOTE | 2022-08-27 08:54 | NUR ---
GAVE REPORT TO TAVIA MARTINEZ. PT. WAITING TO BE TRANSFER.
--- NOTE | 2022-08-27 09:39 | NUR ---
doesnt want to go to [facility]. patient wants to be discharge instead. informed doe NICHOLS of [facility]
--- NOTE | 2022-08-27 09:40 | NUR ---
informed MD about pt request.
--- NOTE | 2022-08-27 10:08 | NUR ---
Patient discharged to home in stable condition. Written and verbal after care instructions given. Patient verbalizes understanding of instruction.
[2022-08-27 10:10] VITALS: BP 138/80
== END 2022-08-27 10:11 | disposition home or self-care (01) ==
LOC: ER 16:40
DX: R45.851 Suicidal ideations (principal); F25.9 Schizoaffective disorder, unspecified; F31.9 Bipolar disorder, unspecified; F19.10 Other psychoactive substance abuse, uncomplicated; I10 Essential (primary) hypertension; F41.9 Anxiety disorder, unspecified; Z79.899 Other long term (current) drug therapy; Z88.1 Allergy status to other antibiotic agents; Z91.14 Patient's other noncompliance with medication regimen
CPT/HCPCS: 99285; 93005; 85025; 80048; 80076; 81001; 36415; 87426; 80143; 80320; 80307; C9803; G0480

== ENCOUNTER 2022-10-12 18:34 | Emergency (ER) | payer OTHER ==
[~2022-10-12] VITALS: Ht 167.6 cm; Wt 79.4 kg
--- NOTE | 2022-10-12 23:24 | NUR ---
CALLED FOR TRIAGE. NO NASWER
--- NOTE | 2022-10-13 | NUR ---
BIBS FOR C/O DEPRESSION AND MENTAL BREAK DOWN. REQUESTING VOLUNTARY PSYHC ADMISSION. PT A/OX3. TOLERATING R/A WELL WITH NO RESP DISTRESS. PT CHANGED IN GOWN, BELONGINGS COLLECTED TO BE PLACED IN LOCKER, AND WANDED BY SECURITY. CONNECTED PT TO POX AND MONITOR. SAFETY MEASURES IN PLACE.
[2022-10-13 00:24] LABS: BASOPHILS # (AUTO) 0.1 K/uL (0.0-0.2); BASOPHILS % (AUTO) 0.8 % (0.0-2.0); EOSINOPHILS % (AUTO) 2.5 % (0.0-6.0); HEMATOCRIT 42 % (39-51); HEMOGLOBIN 13.6 g/dL (13.5-17.5); LYMPHOCYTES # (AUTO) 2.3 K/uL (0.8-4.8); LYMPHOCYTES % (AUTO) 33.1 % (20.0-44.0); MEAN CORPUSCULAR HGB CONC 33 g/dl (31.0-36.0); MEAN CORPUSCULAR VOLUME 88 fL (80-96); MONOCYTES # (AUTO) 0.5 K/uL (0.1-1.30); NEUTROPHILS % (AUTO) 56.6 % (43.0-81.0); PLATELET COUNT (AUTO) 374 K/uL (150-450); RED BLOOD CELL COUNT(AUTO) 4.75 MIL/uL (4.5-6.0)
[2022-10-13 00:42] LABS: CALCIUM, SERUM 8.4 mg/dL (8.5-10.1); CARBON DIOXIDE 26 mmol/L (21-32); CHLORIDE 106 mmol/L (98-107); CREATININE 1.2 mg/dL (0.6-1.3); GLUCOSE 102 mg/dL (74-106); POTASSIUM 3.8 mmol/L (3.5-5.1); SODIUM SERUM 137 mmol/L (136-145); UREA NITROGEN, BLOOD 21 mg/dL (7-18)
[2022-10-13 00:47] LABS: ALANINE AMINOTRANSFERASE 22 U/L (12-78); ALBUMIN 3.4 g/dL (3.4-5.0); ALCOHOL, BLOOD < 3 mg/dL (0-0); ALKALINE PHOSPHATASE 96 U/L (46-116); ASPARTATE AMINOTRANSFERASE 18 U/L (15-37); BILIRUBIN,DIRECT 0.1 mg/dL (0.0-0.2); BILIRUBIN,TOTAL 0.2 mg/dL (0.2-1.0); TOTAL PROTEIN, SERUM 6.7 g/dL (6.4-8.2)
[2022-10-13 00:48] LABS: ACETAMINOPHEN 0 ug/ml (10-30)
--- NOTE | 2022-10-13 01:19 | NUR ---
CALLED LAB TO ENVIRONMENTAL INTERN SPECIMEN
[2022-10-13 01:53] LABS: BILIRUBIN,URINE NEGATIVE (NEGATIVE); COLOR,URINE YELLOW (YELLOW); LEUKOCYTE ESTERASE ,URINE NEGATIVE (NEGATIVE); NITRITE, URINE NEGATIVE (NEGATIVE); PROTEIN,URINE NEGATIVE (NEGATIVE); UGLUCOSE NEGATIVE (NEGATIVE); UROBILINOGEN,URINE 0.2 EU/dL (0.2)
--- NOTE | 2022-10-13 04:22 | NUR ---
FAXED CLINICALS TO [facility]
--- NOTE | 2022-10-13 07:07 | NUR ---
DEBORAH DILLON AT [facility] PT GOT ACCPETED AT [facility], UNDER CARE OF DR ANTONY, # FOR REPORT: [phone]
--- NOTE | 2022-10-13 10:58 | NUR ---
[employer] [facility] WILL COLLECT PT AT 1130 PER MIKAEL.
--- NOTE | 2022-10-13 11:30 | NUR ---
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 Sent to psych facility at [facility]
[2022-10-13 17:20] VITALS: BP 159/89
== END 2022-10-13 17:28 ==
LOC: ER 18:40
DX: F31.9 Bipolar disorder, unspecified (principal); F15.10 Other stimulant abuse, uncomplicated; Z20.822 Contact with and (suspected) exposure to COVID-19; Z59.01 Sheltered homelessness; F20.9 Schizophrenia, unspecified; I10 Essential (primary) hypertension; F17.200 Nicotine dependence, unspecified, uncomplicated; F41.9 Anxiety disorder, unspecified; Z79.899 Other long term (current) drug therapy
CPT/HCPCS: 99285; 81003; 36415; 80307; 85025; 80048; 80076; 87426; 80143; 80320; C9803; G0480

== ENCOUNTER 2022-11-06 17:35 | Emergency (ER) | payer OTHER ==
[~2022-11-06] VITALS: Ht 167.6 cm; Wt 79.4 kg
[2022-11-06] MEDS ORDERED: LORAZEPAM 1 MG TABLET PO ONE ×2 (18:30)
[2022-11-06] MEDS ORDERED: LORAZEPAM 1 MG TABLET ONE (18:32)
[2022-11-06 18:50] LABS: ALANINE AMINOTRANSFERASE 19 U/L (12-78); ALBUMIN 3.4 g/dL (3.4-5.0); ALKALINE PHOSPHATASE 99 U/L (46-116); ASPARTATE AMINOTRANSFERASE 18 U/L (15-37); BILIRUBIN,DIRECT 0.1 mg/dL (0.0-0.2); BILIRUBIN,TOTAL 0.3 mg/dL (0.2-1.0); CALCIUM, SERUM 8.9 mg/dL (8.5-10.1); CARBON DIOXIDE 26 mmol/L (21-32); CHLORIDE 104 mmol/L (98-107); CREATININE 1.1 mg/dL (0.6-1.3); GLUCOSE 112 mg/dL (74-106); POTASSIUM 4.1 mmol/L (3.5-5.1); SODIUM SERUM 135 mmol/L (136-145); TOTAL PROTEIN, SERUM 6.4 g/dL (6.4-8.2); UREA NITROGEN, BLOOD 17 mg/dL (7-18)
[2022-11-06 19:07] LABS: BILIRUBIN,URINE NEGATIVE (NEGATIVE); COLOR,URINE YELLOW (YELLOW); LEUKOCYTE ESTERASE ,URINE NEGATIVE (NEGATIVE); NITRITE, URINE NEGATIVE (NEGATIVE); PH,URINE 6.5 (5.0-8.0); PROTEIN,URINE NEGATIVE (NEGATIVE); UGLUCOSE NEGATIVE (NEGATIVE)
[2022-11-06 19:09] LABS: ALCOHOL, BLOOD < 3 mg/dL (0-0)
[2022-11-06 20:13] LABS: BASOPHILS # (AUTO) 0.1 K/uL (0.0-0.2); HEMATOCRIT 44 % (39-51); HEMOGLOBIN 14.3 g/dL (13.5-17.5); LYMPHOCYTES # (AUTO) 1.1 K/uL (0.8-4.8); LYMPHOCYTES % (AUTO) 18.5 % (20.0-44.0); MEAN CORPUSCULAR HGB CONC 32 g/dl (31.0-36.0); MEAN CORPUSCULAR VOLUME 89 fL (80-96); MONOCYTES # (AUTO) 0.6 K/uL (0.1-1.30); MONOCYTES % (AUTO) 10.4 % (2.0-12.0); NEUTROPHILS # (AUTO) 3.9 K/uL (1.8-8.9); NEUTROPHILS % (AUTO) 68.1 % (43.0-81.0); PLATELET COUNT (AUTO) 303 K/uL (150-450); RED BLOOD CELL COUNT(AUTO) 4.94 MIL/uL (4.5-6.0); WHITE BLOOD COUNT (AUTO) 5.8 K/uL (4.3-11.0)
[2022-11-06 20:48] LABS: BACTERIA,URINE None seen /HPF (None Seen); RBC,URINE 0-2 /HPF (0-2); SQUAMOUS EPITHELIAL CELL,UR 0-2 /HPF (None Seen); WBC,URINE 0-2 /HPF (0-3)
[2022-11-06 20:49] LABS: URINE AMORPHOUS URATE Few /HPF (None Seen)
--- NOTE | 2022-11-07 08:45 | NUR ---
CODI faxed clinicals to [facility] TEL:[phone] fax:[phone] for voluntary psychiatric treatment at [facility] [[facility] [place] [address] FAX:[phone]].
--- NOTE | 2022-11-07 10:34 | NUR ---
SW called [facility] TEL:[phone] for update regarding possible admission and spoke to Romero who stated that they have received the referral and the [place] location has no bed availability but they are referring the pt. to the [place] location. Noted.
--- NOTE | 2022-11-07 11:37 | NUR ---
PT. ACCEPTED AT [facility]. , REPORT TO [phone] EX; [phone]
--- NOTE | 2022-11-07 11:46 | NUR ---
CALL [phone] EXT [phone] TO GIVE REPORT TO CHARGE NURSE JORGE
--- NOTE | 2022-11-07 11:54 | NUR ---
CALLED [facility] FOR TRANSPORT TO [facility], ETA 45MIN-1HR
[2022-11-07 12:00] VITALS: BP 132/81
--- NOTE | 2022-11-07 12:41 | NUR ---
PER JARON, SHE WILL SEE IF THEY CAN GIVE A BED IN [facility] INSTEAD OF [facility]
--- NOTE | 2022-11-07 12:45 | NUR ---
[facility] WAS CANCELLED DUE TO PT NOT WANTING TO GO TO [facility].
--- NOTE | 2022-11-07 12:58 | NUR ---
[facility] CALLED, SAID PT IS ACCEPTED THEY NOW HAVE BEDS. CALL [phone] TO GIVE REPORT FOR UNIT 1. DR. REAGAN ADMITTING
--- NOTE | 2022-11-07 13:10 | NUR ---
[facility] SET UP TRANSPORT, ETA IS 2:00P
--- NOTE | 2022-11-07 14:20 | NUR ---
TRASNPORTATION ARRIVED, PT [facility] IN ST[facility] CONDITION.
== END 2022-11-07 14:20 ==
LOC: ER 17:50
DX: R45.851 Suicidal ideations (principal); F13.20 Sedative, hypnotic or anxiolytic dependence, uncomplicated; F15.10 Other stimulant abuse, uncomplicated; F29 Unspecified psychosis not due to a substance or known physiological condition; I10 Essential (primary) hypertension; F31.9 Bipolar disorder, unspecified; F20.9 Schizophrenia, unspecified; Z79.899 Other long term (current) drug therapy; Z59.00 Homelessness unspecified; Z20.822 Contact with and (suspected) exposure to COVID-19; F17.200 Nicotine dependence, unspecified, uncomplicated
CPT/HCPCS: 99285; 85025; 80048; 80076; 81001; 36415; 87426; 80143; 80320; 80307; C9803; G0480

== ENCOUNTER 2022-11-20 22:25 | Emergency (ER) | payer OTHER ==
[~2022-11-20] VITALS: Ht 167.6 cm; Wt 84.8 kg
[2022-11-20 23:26] LABS: BILIRUBIN,URINE NEGATIVE (NEGATIVE); COLOR,URINE YELLOW (YELLOW); LEUKOCYTE ESTERASE ,URINE NEGATIVE (NEGATIVE); NITRITE, URINE NEGATIVE (NEGATIVE); PH,URINE 5.5 (5.0-8.0); PROTEIN,URINE NEGATIVE (NEGATIVE); UGLUCOSE NEGATIVE (NEGATIVE); UROBILINOGEN,URINE 0.2 EU/dL (0.2)
[2022-11-20 23:37] LABS: BASOPHILS # (AUTO) 0.1 K/uL (0.0-0.2); BASOPHILS % (AUTO) 0.9 % (0.0-2.0); HEMATOCRIT 39 % (39-51); HEMOGLOBIN 12.6 g/dL (13.5-17.5); LYMPHOCYTES # (AUTO) 2.1 K/uL (0.8-4.8); LYMPHOCYTES % (AUTO) 33.5 % (20.0-44.0); MEAN CORPUSCULAR HGB CONC 32 g/dl (31.0-36.0); MEAN CORPUSCULAR VOLUME 89 fL (80-96); MONOCYTES # (AUTO) 0.6 K/uL (0.1-1.30); MONOCYTES % (AUTO) 10.2 % (2.0-12.0); NEUTROPHILS # (AUTO) 3.3 K/uL (1.8-8.9); NEUTROPHILS % (AUTO) 52.4 % (43.0-81.0); PLATELET COUNT (AUTO) 375 K/uL (150-450); WHITE BLOOD COUNT (AUTO) 6.2 K/uL (4.3-11.0)
[2022-11-20 23:44] LABS: CALCIUM, SERUM 8.7 mg/dL (8.5-10.1); CARBON DIOXIDE 26 mmol/L (21-32); CHLORIDE 108 mmol/L (98-107); CREATININE 1.3 mg/dL (0.6-1.3); GLUCOSE 106 mg/dL (74-106); SODIUM SERUM 143 mmol/L (136-145); UREA NITROGEN, BLOOD 25 mg/dL (7-18)
[2022-11-20 23:49] LABS: ALANINE AMINOTRANSFERASE 29 U/L (12-78); ALBUMIN 3.6 g/dL (3.4-5.0); ALKALINE PHOSPHATASE 104 U/L (46-116); ASPARTATE AMINOTRANSFERASE 24 U/L (15-37); BILIRUBIN,DIRECT 0.1 mg/dL (0.0-0.2); BILIRUBIN,TOTAL 0.3 mg/dL (0.2-1.0); TOTAL PROTEIN, SERUM 6.7 g/dL (6.4-8.2)
[2022-11-20 23:51] LABS: ACETAMINOPHEN 0 ug/ml (10-30); ALCOHOL, BLOOD < 3 mg/dL (0-0)
--- NOTE | 2022-11-21 | NUR ---
PATIENT BIBSELF C/O +SI, WANT VOL PSYCH ADMIT. PATIENT IS A/O X 4, RR EVEN AND UNLABORED NO SOB NOTED. VSS. PATIENT TO ER BED 18. PATIENT WANDED BY SECURITY. WILL CONTINUE TO MONITOR.
--- NOTE | 2022-11-21 02:27 | NUR ---
clinicals fax to [facility]
--- NOTE | 2022-11-21 08:00 | NUR ---
PT APPEARS TO BE SLEEPING, RESTING COMFORTABLY IN BED. BREATHING EVEN AND UNLABORED.
--- NOTE | 2022-11-21 08:03 | NUR ---
[facility] NOTIFIED US THAT THEY DID NOT RECEIVE CLINICALS SENT CLINICALS AGAIN.
--- NOTE | 2022-11-21 08:48 | NUR ---
[facility] CALLED WITH ACCEPTANCE INFO ACCEPTING MD AKHIL WILKERSON 1100 REPORT TO DANIEL [phone]
--- NOTE | 2022-11-21 11:08 | NUR ---
called [facility] regarding pt transfer and was notified that transport will be here at 0565
[2022-11-21 11:40] VITALS: BP 126/84
--- NOTE | 2022-11-21 11:45 | NUR ---
TRANSPORTATION ARRIVED, PT TRANSPORTED TO [facility] IN STABLE [place]. BELONGINGS GIVEN TO PT.
== END 2022-11-21 11:47 ==
LOC: ER 22:27
DX: R45.851 Suicidal ideations (principal); F17.210 Nicotine dependence, cigarettes, uncomplicated; F19.10 Other psychoactive substance abuse, uncomplicated; F20.9 Schizophrenia, unspecified; F31.9 Bipolar disorder, unspecified; I10 Essential (primary) hypertension; F41.9 Anxiety disorder, unspecified; Z79.899 Other long term (current) drug therapy; Z20.822 Contact with and (suspected) exposure to COVID-19
CPT/HCPCS: 99285; 99406; 85025; 80048; 80076; 81003; 36415; 87426; 80143; 80320; 80307; C9803; G0480

== ENCOUNTER 2022-12-04 18:15 | Emergency (ER) | payer OTHER ==
[~2022-12-04] VITALS: Ht 167.6 cm; Wt 81.6 kg
--- NOTE | 2022-12-04 21:11 | NUR ---
BIBS FOR DEPRESSION ANXIETY. REQUESTING VOLUNTARY [facility] ADMISSION. PT A, OX4. AMBULATORY TO THE BATHROOM. URINE SAMPLE AND COVID SWAB DONE. VSS. SI PRECAUTION IMPLEMENTED. WILL CONT TO MONITOR
[2022-12-04 22:09] LABS: EOSINOPHILS % (AUTO) 4.7 % (0.0-6.0); HEMATOCRIT 36 % (39-51); HEMOGLOBIN 12.1 g/dL (13.5-17.5); LYMPHOCYTES # (AUTO) 2.1 K/uL (0.8-4.8); LYMPHOCYTES % (AUTO) 42.7 % (20.0-44.0); MEAN CORPUSCULAR HGB CONC 33 g/dl (31.0-36.0); MEAN CORPUSCULAR VOLUME 88 fL (80-96); MONOCYTES # (AUTO) 0.5 K/uL (0.1-1.30); MONOCYTES % (AUTO) 10.3 % (2.0-12.0); NEUTROPHILS # (AUTO) 2.1 K/uL (1.8-8.9); NEUTROPHILS % (AUTO) 41.3 % (43.0-81.0); PLATELET COUNT (AUTO) 298 K/uL (150-450); RED BLOOD CELL COUNT(AUTO) 4.14 MIL/uL (4.5-6.0)
[2022-12-04 22:09] LABS: BILIRUBIN,URINE NEGATIVE (NEGATIVE); COLOR,URINE YELLOW (YELLOW); LEUKOCYTE ESTERASE ,URINE NEGATIVE (NEGATIVE); NITRITE, URINE NEGATIVE (NEGATIVE); PROTEIN,URINE NEGATIVE (NEGATIVE); UGLUCOSE NEGATIVE (NEGATIVE)
[2022-12-04 22:15] LABS: BACTERIA,URINE Rare /HPF (None Seen); RBC,URINE 0-2 /HPF (0-2); SQUAMOUS EPITHELIAL CELL,UR Rare /HPF (None Seen); WBC,URINE 0-2 /HPF (0-3)
[2022-12-04 22:34] LABS: CALCIUM, SERUM 8.6 mg/dL (8.5-10.1); CARBON DIOXIDE 29 mmol/L (21-32); CHLORIDE 105 mmol/L (98-107); CREATININE 1.1 mg/dL (0.6-1.3); GLUCOSE 101 mg/dL (74-106); POTASSIUM 4.2 mmol/L (3.5-5.1); SODIUM SERUM 140 mmol/L (136-145); UREA NITROGEN, BLOOD 11 mg/dL (7-18)
[2022-12-04 22:40] LABS: ALANINE AMINOTRANSFERASE 30 U/L (12-78); ALBUMIN 3.6 g/dL (3.4-5.0); ALKALINE PHOSPHATASE 101 U/L (46-116); ASPARTATE AMINOTRANSFERASE 24 U/L (15-37); BILIRUBIN,DIRECT 0.1 mg/dL (0.0-0.2); BILIRUBIN,TOTAL 0.2 mg/dL (0.2-1.0); TOTAL PROTEIN, SERUM 6.9 g/dL (6.4-8.2)
[2022-12-04 22:43] LABS: ACETAMINOPHEN 0 ug/ml (10-30); ALCOHOL, BLOOD < 3 mg/dL (0-0)
[2022-12-04] MEDS ORDERED: CLONIDINE HCL 0.1 MG TABLET PO ONE (23:00)
[2022-12-04] MEDS ORDERED: LORAZEPAM 1 MG TABLET PO ONE (23:00)
[2022-12-04] MEDS ORDERED: LORAZEPAM 1 MG TABLET ONE (23:05)
[2022-12-04] MEDS: QUETIAPINE FUMARATE 25 MG TABLET PO SCH (23:05)
[2022-12-04] MEDS ORDERED: QUETIAPINE FUMARATE 25 MG TABLET ONE (23:05)
[2022-12-04] MEDS ORDERED: CLONIDINE HCL 0.1 MG TABLET ONE (23:06)
--- NOTE | 2022-12-05 00:30 | NUR ---
FACESHEET AND CLINICALS FAXED TO [facility].
--- NOTE | 2022-12-05 07:30 | NUR ---
SENT PT FACE SHEET TO [facility] AT [facility]
--- NOTE | 2022-12-05 08:13 | NUR ---
PT CLINICALS FAXED AGAIN TO [facility]
[2022-12-05] MEDS ORDERED: QUETIAPINE FUMARATE 25 MG TABLET ONE (09:07)
[2022-12-05] MEDS: QUETIAPINE FUMARATE 25 MG TABLET PO SCH (09:11)
--- NOTE | 2022-12-05 09:33 | NUR ---
ACCEPTED AT [facility] UNDER DR LANDAVERDE # FOR REPORT [phone] [facility]SP[facility] ETA 11AM
[2022-12-05 10:45] VITALS: BP 124/81
--- NOTE | 2022-12-05 11:10 | NUR ---
TRANSPORTATION ARRIVED, PT TRASNPORTED TO [facility] IN STABLE CONDITION. PT GIVEN BELONGINGS.
== END 2022-12-05 11:11 ==
LOC: ER 18:17
DX: R45.851 Suicidal ideations (principal); F29 Unspecified psychosis not due to a substance or known physiological condition; Z59.00 Homelessness unspecified; I10 Essential (primary) hypertension; F20.9 Schizophrenia, unspecified; F19.10 Other psychoactive substance abuse, uncomplicated; F31.9 Bipolar disorder, unspecified; F41.9 Anxiety disorder, unspecified; Z79.899 Other long term (current) drug therapy; Z20.822 Contact with and (suspected) exposure to COVID-19
CPT/HCPCS: 99285; 93005; 85025; 80048; 80076; 81001; 36415; 84484 ×2; 85730; 87426; 80143; 80320; 80307; C9803; G0480

== ENCOUNTER 2023-01-04 20:02 | Emergency (ER) | payer OTHER ==
[~2023-01-04] VITALS: Ht 167.6 cm; Wt 86.2 kg
[2023-01-04 21:23] LABS: BASOPHILS # (AUTO) 0.1 K/uL (0.0-0.2); BASOPHILS % (AUTO) 1.2 % (0.0-2.0); EOSINOPHILS % (AUTO) 3.5 % (0.0-6.0); HEMATOCRIT 40 % (39-51); HEMOGLOBIN 12.8 g/dL (13.5-17.5); LYMPHOCYTES # (AUTO) 1.7 K/uL (0.8-4.8); LYMPHOCYTES % (AUTO) 33.1 % (20.0-44.0); MEAN CORPUSCULAR HGB CONC 32 g/dl (31.0-36.0); MEAN CORPUSCULAR VOLUME 88 fL (80-96); MONOCYTES # (AUTO) 0.6 K/uL (0.1-1.30); MONOCYTES % (AUTO) 11.8 % (2.0-12.0); NEUTROPHILS # (AUTO) 2.6 K/uL (1.8-8.9); NEUTROPHILS % (AUTO) 50.4 % (43.0-81.0); PLATELET COUNT (AUTO) 337 K/uL (150-450); RED BLOOD CELL COUNT(AUTO) 4.49 MIL/uL (4.5-6.0); WHITE BLOOD COUNT (AUTO) 5.2 K/uL (4.3-11.0)
[2023-01-04 21:35] LABS: CALCIUM, SERUM 8.4 mg/dL (8.5-10.1); CARBON DIOXIDE 27 mmol/L (21-32); CHLORIDE 108 mmol/L (98-107); CREATININE 1.2 mg/dL (0.6-1.3); GLUCOSE 101 mg/dL (74-106); POTASSIUM 3.8 mmol/L (3.5-5.1); SODIUM SERUM 141 mmol/L (136-145); UREA NITROGEN, BLOOD 16 mg/dL (7-18)
[2023-01-04 21:41] LABS: ALANINE AMINOTRANSFERASE 35 U/L (12-78); ALBUMIN 3.5 g/dL (3.4-5.0); ALCOHOL, BLOOD < 3 mg/dL (0-0); ALKALINE PHOSPHATASE 99 U/L (46-116); ASPARTATE AMINOTRANSFERASE 27 U/L (15-37); BILIRUBIN,DIRECT 0.1 mg/dL (0.0-0.2); BILIRUBIN,TOTAL 0.2 mg/dL (0.2-1.0); TOTAL PROTEIN, SERUM 6.4 g/dL (6.4-8.2)
[2023-01-04 22:17] LABS: BILIRUBIN,URINE NEGATIVE (NEGATIVE); COLOR,URINE YELLOW (YELLOW); LEUKOCYTE ESTERASE ,URINE NEGATIVE (NEGATIVE); NITRITE, URINE NEGATIVE (NEGATIVE); PROTEIN,URINE NEGATIVE (NEGATIVE); UGLUCOSE NEGATIVE (NEGATIVE)
--- NOTE | 2023-01-04 23:32 | NUR ---
FAXED CLINICALS TO [facility]
[2023-01-04 23:53] LABS: BACTERIA,URINE Rare /HPF (None Seen); RBC,URINE 0-2 /HPF (0-2); SQUAMOUS EPITHELIAL CELL,UR Rare /HPF (None Seen); WBC,URINE 0-2 /HPF (0-3)
[2023-01-05 07:15] VITALS: BP 156/99
--- NOTE | 2023-01-05 07:15 | NUR ---
assume pt care, in room. multiple ed visits for same reason. requesting voluntary psychiatric admission to [facility]. suicidal w/ no plan. denies hi. vital sign stable. will continue to monitor.
--- NOTE | 2023-01-05 09:34 | NUR ---
RECIEVED A CALL FROM [facility] PT ACCEPTED AT 1330 CALL MICKY FOR REPORT CALLING [facility] FOR TRANSPORT
--- NOTE | 2023-01-05 09:37 | NUR ---
CALLED [facility] AND SET UP BLS TRANSPORT ETA 1333
--- NOTE | 2023-01-05 14:00 | NUR ---
TRANSPORTED TO [facility], [facility] IN STABLE CONDITION.
== END 2023-01-05 14:00 ==
LOC: ER 20:04
DX: R45.851 Suicidal ideations (principal); I10 Essential (primary) hypertension; F32.A Depression, unspecified; F41.9 Anxiety disorder, unspecified; F17.200 Nicotine dependence, unspecified, uncomplicated; Z90.89 Acquired absence of other organs; Z79.899 Other long term (current) drug therapy; Z60.2 Problems related to living alone; Z20.822 Contact with and (suspected) exposure to COVID-19; Z88.1 Allergy status to other antibiotic agents
CPT/HCPCS: 99285; 85025; 80048; 80076; 81001; 36415; 87426; 80143; 80320; 80307; C9803; G0480